=== PATIENT | female | born 1950 | race Caucasian/White ===

== ENCOUNTER → 2024-01-25 09:23 | Outpatient (REF) | payer OTHER, MEDICARE, SELFPAY | LOC: RAD 09:23 | PROVIDERS: ATTENDING PHYSICIAN Thoracic Surgery (Cardiothoracic Vascular Surgery); FAMILY PHYSICIAN Family Medicine | DX: I35.0 Nonrheumatic aortic (valve) stenosis (principal) | CPT/HCPCS: 75572; Q9967 ==

== ENCOUNTER 2024-02-21 05:03 | Inpatient (IN) | payer OTHER, MEDICARE, SELFPAY ==
[2024-01-30 13:11] LABS: % Basophils 0.5 % (0-2); % Eosinophils 3.6 % (0-6); % Immature Granulocytes 0.2 % (0-0.5); % Lymphocytes 23.5 % (20.5-51.1); % Monocytes 8.2 % (1.7-9.3); Absolute Eosinophils 0.2 10^3/uL (0-0.7); Absolute Lymphocytes 1.4 10^3/uL (1.2-3.4); Absolute Monocytes 0.5 10^3/uL (0.1-0.6); Absolute Neutrophils 3.9 10^3/uL (1.4-6.5); Hematocrit 38.3 % (37.0-47.0); Hemoglobin 13.2 g/dL (12.0-16.0); Mean Corp Hgb Conc. 34.5 g/dL (33.0-37.0); Mean Corpuscular Hgb 31.1 pg (27.0-31.0); Mean Corpuscular Volume 90.1 fL (81.0-99.0); Mean Platelet Volume 10.5 fL (7.4-10.4); Nucleated Red Blood Cells % 0 %; Platelet Count 171 10^3/uL (130-400); Red Blood Cell Count 4.25 10^6/uL (4.20-5.40); Red Cell Dist. Width 13.2 % (11.5-14.5); White Blood Cell Count 6.1 10^3/uL (4.8-10.8)
[2024-01-30 13:18] VITALS: BMI 33.1
[2024-01-30 13:23] LABS: INR 1.04; PT 13.4 Sec (11.4-14.6)
[2024-01-30 13:24] LABS: APTT 26.8 Sec (23.4-35.0)
[2024-01-30 13:51] LABS: ALT (SGPT) 15 U/L (0-35); AST (SGOT) 23 U/L (14-36); Albumin 4.5 g/dl (3.5-5.0); Alkaline Phosphatase 107 U/L (38-126); Blood Urea Nitrogen 26 mg/dl (7-17); Calcium 9.9 mg/dl (8.4-10.2); Carbon Dioxide 28 mmol/L (22-30); Chloride 103 mmol/L (98-107); Direct Bilirubin 0.3 mg/dl (0.0-0.4); Estimated Creatinine Clearance 47 ml/min; Glucose 106 mg/dl (70-99); Potassium 4.6 mmol/L (3.5-5.1); Sodium 140 mmol/L (135-145); Total Bilirubin 1.2 mg/dl (0.2-1.3); Total Protein 7.6 g/dl (6.3-8.2); eGFR > 60.00
[2024-01-30 14:09] LABS: Urine Albumin Negative (Neg - Trace); Urine Bilirubin Negative (Negative); Urine Character Clear (Clear); Urine Color Yellow; Urine Glucose Negative (Negative); Urine Ketone Negative (Negative); Urine Leukocyte Trace (Negative); Urine Nitrite Negative (Negative); Urine Occult Blood 2+ (Negative); Urine Urobilinogen Negative (Neg - 1+)
[2024-01-30 14:22] LABS: Urine Bacteria Moderate (Negative); Urine Red Blood Cell 0-2 /HPF (0-2)
--- NOTE | 2024-01-30 14:23 | CM ---
Met with Mrs. Meehan in [facility]'s. She states prior to admission she resides with her spouse and daughter in a one story home with one step to enter. She states prior to admission she was independent with ambulation and adls. She states she does not
have any DME in the home. She states she has a prescription plan and uses [facility]. She states her daughter will be home to assist in her care if needed when she goes home. The discharge plan is to return home with her spouse and daughter and
a home visit by the Cardiothoracic Transitional Care Nurse when medically stable.
We reviewed pre-op and post-op routines. We reviewed the shower instructions. We also reviewed restrictions including sternal precautions and driving restrictions. We discussed a home visit by the Cardiothoracic Transitional Care Nurse. She was
agreeable to a home visit. The plan is AVR and CABG on Monday, February 21, 2024.
[2024-01-31 14:24] LABS: Glycohemoglobin (HgbA1c) 5.3 % (4.0-5.6)
[2024-02-21] VITALS (13 sets, daily range): BP systolic 78–168; BP diastolic 50–71; BMI 31.3
[2024-02-21] MEDS: BACTROBAN 2% OINTMENT 1 APPLIC NASAL ×2 (05:49→23:07)
[2024-02-21] MEDS: PROTONIX 40 MG PO (05:49)
[2024-02-21] MEDS: MAGNESIUM OXIDE 500 MG PO (05:49)
[2024-02-21] MEDS: LOPRESSOR 25 MG PO (05:49)
[2024-02-21 08:16] LABS: ACT+ - POC 85 Seconds (82-134)
[2024-02-21 08:22] LABS: Urine Albumin Trace (Neg - Trace); Urine Bilirubin Negative (Negative); Urine Character Slightly Cloudy (Clear); Urine Color Yellow; Urine Glucose Negative (Negative); Urine Ketone Negative (Negative); Urine Leukocyte 1+ (Negative); Urine Nitrite Positive (Negative); Urine Occult Blood Trace (Negative); Urine Specific Gravity 1.025 (<1.030); Urine Urobilinogen Negative (Neg - 1+)
--- NOTE | 2024-02-21 08:25 | PTCARENOTE ---
Melita Hernandez, gave pt's rings to pt's daughter Mercedes Meehan.
[2024-02-21 08:40] LABS: Urine Bacteria Many (Negative); Urine Red Blood Cell 0-2 /HPF (0-2)
--- NOTE | 2024-02-21 09:43 | CM ---
pt in OR today, cm to follow.
[2024-02-21 10:40] LABS: ACT+ - POC > 1003 Seconds (82-134)
[2024-02-21 10:55] LABS: B.E. - POC 1.1 mmol/L; Glucose - POC 120 mg/dl (65-99); HCO3 - POC 25 mmol/L (21-29); Hematocrit - POC 35 % PCV (37-47); Hemodilution- POC No; Hemoglobin Calculated - POC 11.9; Ionized Calcium - POC 1.21 mmol/L (1.12-1.27); O2 Saturation %Calculated-POC 99.7 5 (92-96); PCO2 - POC 38 mmHg (35-45); PO2 - POC 199 mmHg (80-100); POC Comment BASELINE; Potassium - POC 4.1 mmol/L (3.6-5.0); Sodium - POC 141 mmol/L (135-145); pH - POC 7.43 (7.35-7.45)
[2024-02-21 11:09] LABS: ACT+ - POC 770 Seconds (82-134)
[2024-02-21 11:28] LABS: B.E. - POC 2.4 mmol/L; Glucose - POC 161 mg/dl (65-99); HCO3 - POC 28 mmol/L (21-29); Hematocrit - POC 23 % PCV (37-47); Hemodilution- POC Yes; Hemoglobin Calculated - POC 7.9; Ionized Calcium - POC 0.99 mmol/L (1.12-1.27); O2 Saturation %Calculated-POC 99.9 5 (92-96); PCO2 - POC 46 mmHg (35-45); PO2 - POC 347 mmHg (80-100); POC Comment CPB; Potassium - POC 4.7 mmol/L (3.6-5.0); Sodium - POC 138 mmol/L (135-145); pH - POC 7.39 (7.35-7.45)
[2024-02-21 11:40] LABS: ACT+ - POC 650 Seconds (82-134)
[2024-02-21 11:56] LABS: B.E. - POC 2.1 mmol/L; Glucose - POC 132 mg/dl (65-99); HCO3 - POC 26 mmol/L (21-29); Hematocrit - POC 25 % PCV (37-47); Hemodilution- POC Yes; Hemoglobin Calculated - POC 8.5; Ionized Calcium - POC 1.03 mmol/L (1.12-1.27); O2 Saturation %Calculated-POC 99.9 5 (92-96); PCO2 - POC 38 mmHg (35-45); PO2 - POC 245 mmHg (80-100); POC Comment CPB; Potassium - POC 4.3 mmol/L (3.6-5.0); Sodium - POC 138 mmol/L (135-145); pH - POC 7.45 (7.35-7.45)
[2024-02-21 12:05] LABS: ACT+ - POC 550 Seconds (82-134)
[2024-02-21 12:29] LABS: B.E. - POC 0.1 mmol/L; Glucose - POC 102 mg/dl (65-99); HCO3 - POC 25 mmol/L (21-29); Hematocrit - POC 25 % PCV (37-47); Hemodilution- POC Yes; Hemoglobin Calculated - POC 8.6; Ionized Calcium - POC 1.07 mmol/L (1.12-1.27); O2 Saturation %Calculated-POC 99.9 5 (92-96); PCO2 - POC 38 mmHg (35-45); PO2 - POC 265 mmHg (80-100); POC Comment CPB; Potassium - POC 4.2 mmol/L (3.6-5.0); Sodium - POC 141 mmol/L (135-145); pH - POC 7.42 (7.35-7.45)
[2024-02-21 12:37] LABS: ACT+ - POC 508 Seconds (82-134)
[2024-02-21 12:56] LABS: B.E. - POC 0.9 mmol/L; Glucose - POC 105 mg/dl (65-99); HCO3 - POC 24 mmol/L (21-29); Hematocrit - POC 26 % PCV (37-47); Hemodilution- POC Yes; Hemoglobin Calculated - POC 8.9; Ionized Calcium - POC 1.05 mmol/L (1.12-1.27); O2 Saturation %Calculated-POC 99.9 5 (92-96); PCO2 - POC 33 mmHg (35-45); PO2 - POC 290 mmHg (80-100); POC Comment CPB; Potassium - POC 4.4 mmol/L (3.6-5.0); Sodium - POC 142 mmol/L (135-145); pH - POC 7.48 (7.35-7.45)
[2024-02-21 13:09] LABS: ACT+ - POC 639 Seconds (82-134)
[2024-02-21 13:38] LABS: ACT+ - POC 579 Seconds (82-134)
[2024-02-21 13:51] LABS: B.E. - POC -0.8 mmol/L; Glucose - POC 170 mg/dl (65-99); HCO3 - POC 23 mmol/L (21-29); Hematocrit - POC 22 % PCV (37-47); Hemodilution- POC Yes; Hemoglobin Calculated - POC 7.5; Ionized Calcium - POC 0.98 mmol/L (1.12-1.27); O2 Saturation %Calculated-POC 99.9 5 (92-96); PCO2 - POC 32 mmHg (35-45); PO2 - POC 284 mmHg (80-100); POC Comment WARM; Potassium - POC 4.2 mmol/L (3.6-5.0); Sodium - POC 142 mmol/L (135-145); pH - POC 7.46 (7.35-7.45)
[2024-02-21 13:59] LABS: ACT+ - POC 547 Seconds (82-134)
[2024-02-21 14:21] LABS: ACT+ - POC 454 Seconds (82-134)
[2024-02-21 14:35] LABS: B.E. - POC -1.9 mmol/L; Glucose - POC 160 mg/dl (65-99); HCO3 - POC 22 mmol/L (21-29); Hematocrit - POC 26 % PCV (37-47); Hemodilution- POC Yes; Hemoglobin Calculated - POC 8.7; Ionized Calcium - POC 1.03 mmol/L (1.12-1.27); O2 Saturation %Calculated-POC 99.8 5 (92-96); PCO2 - POC 35 mmHg (35-45); PO2 - POC 238 mmHg (80-100); POC Comment CPB; Sodium - POC 143 mmol/L (135-145); pH - POC 7.41 (7.35-7.45)
--- NOTE | 2024-02-21 15:23 | W.CVOR.SURPR ---
CVOR Surgeon Immed Pre Op
-
I have examined this patient prior to performance of the scheduled procedure.
The patient's condition is unchanged from the time of the dictated/written History and
Physical and the patient is able to undergo the scheduled procedure.
--- NOTE | 2024-02-21 15:24 | W.IMMPOSTOP ---
Addendum entered and electronically signed by Lennox Odonnell MD 02/21/24 17:06:
[id number]
Original Note:
Surgical Immed Post Op Note
-
CARDIAC SURGERY OPERATIVE NOTE:
Preoperative Dx:
[id number] aortic stenosis (P/M: 52/36)
MVCAD s/p prior stenting of OM
LBBB
Postoperative Dx:
Same
Procedures:
1) Median sternotomy
2) Takedown of JENNIFER (narrow pedicle)
3) Endoscopic harvest/prep of RLE GSV
4) CABG x 3 (Distal OM, proximal OM branch, LAD)
5) AVR (#19 Inspiris)
Surgeon:
Lennox Odonnell M.D.
Assistants:
Eunice Pablo P.A.-C.; endoscopic harvest/prep of RLE GSV; residential real estate assistant throughout; clayfe-ev-lbcy closure
Melita Dumont P.A.-C.; closure of RLE GSV incisions; clsdcy-qo-cwrj closure
Anesthesia:
Fernando Ambriz M.D. and Vadim PatelN.A.
Perfusion:
Kath Lock C.C.P.; XC: 178min, CPB: 220min
Findings:
1) JENNIFER was healthy appearing conduit w/ brisk blood flow; slightly small ELD 2.25mm, thin-walled
2) GSV was healthy appearing conduit w/ slightly thin quintana
3) LAD was visible on the epicardial surface from midpoint to apex; ELD 2.75mm, thin-walled. Good flow visually and on completion transit-time U/S flow probe assessment
4) OM was visible on the epicardial surface, stented segment visible; initial coronary arteriotomy ~ 0.5cm distal to stented segment. Unfortunately, coronary dissected and tore at this location during arteriotomy. This location was damaged beyond
the ability to directly repair & maintain anastomosis at this location. I opened the coronary ~1cm distal to this site. It also was very thin-walled and friable at this location, but there was no evidence of dissection/wall injury. ELD 2.25mm.
End-to-side anastomosis performed w/o issue. I then used a vein patch to repair the initial arteriotomy site. I subsequently performed a sequential dqsx-ys-klhb anastomosis to a more proximal branch of the OM; ELD 1.5mm. Good flow on hand
injection and completion transit-time U/S flow probe assessment.
5) Aorta was small w/ ELD 2.1cm; STJ was small w/ 2.1-2.2cm; Annulus was small @ 21.1 mm x 21.8 mm; LVOT was slightly smaller than annulus. Aortic wall was thin and friable
6) #19 Inspiris valve placed w/ 12 interrupted, pledgetted valve sutures and CorKnots. Aorta suffered near complete circumferential tear while valve was lowered into position. Repaired w/ 2-layer circumferential closure w/ 4-0 prolene. Mean
gradient across the valve 10mmHg
7) KORINA w/ normal biventricular function
Complications:
See findings
Transfusions:
1U PRBC, 1pk PLTs
Implants:
[employer]; Inspiris RESILIA AVR; #19; SN: [id number]
Epicardial V-wires x 2
Sternal wires x 8
Condition:
81 sinus w/ LBBB. 108/64. 50/30. CVP 20. CO/CI: 3.0/1.7 (starting 3.2/1.8)
GTTS: insulin 0.5, precedex 0.5, levophed 6, dobutamine 5
Stable/guarded to CVICU
--- NOTE | 2024-02-21 15:38 | CON.INTV ---
Consultation
Consultation Request
Date/Time Consultation Requested: 02/21/24
Date/Time Consultation Performed: 02/21/24
Performing Provider: Krista
Reason for Consultation: Critical Care
Medical History
-
History of Present Illness:
Patient is a 73-year-old female with previous history of CAD status post stent, heart failure with preserved ejection fraction, moderate to severe , hypertension presenting for elective cardiac procedure. She has known history of CAD status post
PCI and stenting to her left circumflex x 3. She had increasing chest pressure and jaw pain, with associated dyspnea with exertion. Recent cardiac catheterization demonstrated 70% ostial left circumflex prior to the stented segment of major obtuse
and 70% LAD disease she also has 70% mid RCA disease noted. Recent TTE demonstrating EF 50-55%. Underwent AVR and CABG 02/21/2024, postoperatively transferred to CVICU on mechanical ventilation for further management.
Past Medical History
Past Medical History: Other (see list below)
Social History
Tobacco: Non-smoker
Alcohol: None
Drug: None
Family History
Family History: Reviewed & Not Pertinent
Allergies / Home Medications
Allergies
Allergy/AdvReac Type Severity Reaction Status Date / Time
No Known Allergies Allergy Verified 01/25/24 14:07
Home Medications
�Medication �Instructions �Recorded �Confirmed �Last Taken �Type
aspirin 81 mg tablet 81 mg PO DAILY 01/25/24 02/21/24 02/20/24 08:00 History
atorvastatin 40 mg tablet 40 mg PO DAILY 01/25/24 02/21/24 02/20/24 History
furosemide 20 mg tablet 20 mg PO DAILY 01/25/24 02/21/24 02/20/24 History
isosorbide mononitrate 60 mg 60 mg PO DAILY 01/25/24 02/21/24 02/18/24 08:00 History
tablet,extended release 24 hr
metoprolol tartrate 50 mg tablet 50 mg PO DAILY 01/25/24 02/21/24 02/20/24 History
pantoprazole 40 mg tablet,delayed 40 mg PO BID 01/25/24 02/21/24 02/20/24 History
release
Review of Systems
-
History Source: Patient
All other systems: Negative unless noted
Vitals / Labs / Diagnostic Testing
Vital Signs
Temp Pulse Resp BP Pulse Ox
97.6 F 81 20 162/72 96
02/21/24 05:07 02/21/24 05:49 02/21/24 05:07 02/21/24 05:49 02/21/24 05:07
Diagnostic Testing:
Physical Exam
-
HEENT: Normocephalic, Anicteric and Moist Mucous Membranes
Cardiovascular: S1/S2 and Regular Rhythm
Respiratory: Clear, Non-Labored Respirations and Other (ETT/chest tube placement)
GI: Soft, Non Distended and Non Tender
Neurology: Other (sedated/intubated)
Skin: Warm, Dry and Good Color
General: Other (critically ill, intubated)
Assessment
-
Patient is a 73-year-old female with previous history of CAD status post stent, heart failure with preserved ejection fraction, moderate to severe , hypertension presenting for elective cardiac procedure. Underwent AVR and CABG 02/21/2024,
postoperatively transferred to CVICU on mechanical ventilation for further management.
MvCAD s/p CABG x 3, AVR 02/21/24
Perioperative mechanical ventilation
Postoperative anemia, thrombocytopenia
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
HTN
CAD s/p PCI to OM 11/19/20
Chronic HFpEF
Moderate-severe
Obesity
HLD
Arthritis
PVC
b/l TKR
x3
Cath PCI to OM 11/19/20
Cath 12/2023
Plan
S/p CAB/AVR POD #0
Titrate off pressors per protocol--on dobutamine/Levophed/vaso added
Surgery at bedside
ECHO reviewed with low function, EF 45-50%
PA catheter readings reviewed
Management of chest tubes per primary service
Intubated/sedated, initiate SAT when able
Pain control
RASS goal of 0 to -1
Intubated for procedure, SBT trial when patient able to spontaneously breath
Current vent settings: SIMV 400/14/50/5
ABG(s) reviewed/adequate ventilation/oxygenation
CXR pending
No prior history of pulmonary disease, possible sleep apnea
Prior PFTs reviewed--suggests restriction/moderately reduced, likely related to BMI
Can add nebulizers if needed
Aspiration precautions
Encouraged incentive spirometry, OOB/ambulation/early mobility
Advance diet as tolerated following extubation
GI prophylaxis if indicated for mechanical ventilation >48 hours
Monitor critical I/O's
Goyal/chest tube output
Hb/platelets postoperatively stable, Hb 8, repeat pending
Trend CBC for now
Can transfuse if indicated for Hb <7, plt <50 in surgical patients
DVT prophylaxis including SCDs
Insulin protocol initiated and ongoing
Transition to SQ/off as indicated per team
We will follow
Diagnostic Data
Chest X-Ray:
CT Scan: 01/25/24- Chest: No pulmonary nodules, areas of airspace disease, pleural effusions, pericardial effusions or enlarged lymph nodes in the thorax. 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 Origins of the
great vessels from the aortic arch are patent. Visualized upper abdomen demonstrates right renal cysts, some with complex calcifications and measuring up to 2.5 cm. Chronic appearing severe T10 compression deformity.
Echo: 02/21/24- Overall LVEF is approximately 45-50% with mild global hypokinesis. Moderate concentric left ventricular hypertrophy. Stage I Diastolic dysfunction. Patent foramen ovale present with a dlso-xr-dublp shunt. Moderately dilated right
atrium. Trace tricuspid regurgitation. Trace pulmonic insufficiency. Severe aortic stenosis. Mild aortic insufficiency. KAYLI calculates to 0.7 cm2 by continuity equation. Trace mitral regurgitation. Mild posterior MV annular calcification. Mild
diffuse calcified atheroma seen in the aortic arch. Mild sessile atheroma seen in the descending aorta.
PFT's: Spirometry 01/30/24- FVC was 1.82L or 78%. FEV1 was 1.33L or 66%. Ratio 74
Impression: Suspected mild restrictive lung disease.
Reports and relevant images were personally reviewed.
-----
Critical care time 55 mins -- this includes review of history, physical exam, medications, hemodynamic/ventilator parameters, laboratory data, imaging and discussion with house staff, pharmacy, respiratory therapy, grader tender, and nursing.
[2024-02-21 15:59] LABS: Glucose - Point of Care 84 mg/dl (70-99)
--- NOTE | 2024-02-21 16:00 | PTCARENOTE ---
SDA for sternotomy,of davina, harvest of rle gsv, CABG x 3, AVR #19 inspiris, aorta tear after valve lowered into position with repair of circumferential tear. It was also reported at bedside that patient had a v fibb arrest after chest closure
rrequiring 2 shocks: 1 umnnit prbc/1 partially infuse plt was also reported at bedside time of arrival at 350pm: upon arrival to cvicu, patient developed hypotension unresponsive to fluid, prbc, volume, pressors: ct emergency at bedside: patient
developed a generalized urticarial rash shortly after arrival from shoulders to knees: IM benadryl, IM epi, decadron IV and pepcid 40mg for distributive shock anaphyalactic reaction. Stabilized and rash faded after above. Precedex resumed at 0.2.
ETT pulled back 2cm. 1 unit prbc in cvicu. See MD notes. Precedex off per Dr. Odonnell.
[2024-02-21] MEDS: CALCIUM CHLORIDE 10% SYRINGE 500 MG IV (16:03)
[2024-02-21 16:08] LABS: B.E. -1.7 mmol/L; HCO3 23.7 mmol/L (21-28); Ionized Calcium 1.11 mMOL/L (1.15-1.33); PCO2 42 mmHg (32-35); PO2 106 mmHg (83-108); Potassium 3.4 mMOL/L (3.5-5.1); Sodium 142 mMOL/L (136-145); pH 7.36 (7.35-7.45)
[2024-02-21 16:10] LABS: Hematocrit 24.2 % (37.0-47.0); Hemoglobin 8.4 g/dL (12.0-16.0); Platelet Count 96 10^3/uL (130-400)
[2024-02-21 16:17] LABS: INR 1.85; PT 21.5 Sec (11.4-14.6)
[2024-02-21 16:18] LABS: APTT 41.9 Sec (23.4-35.0)
[2024-02-21 16:30] LABS: Blood Urea Nitrogen 21 mg/dl (7-17); Estimated Creatinine Clearance 62 ml/min; Glucose 75 mg/dl (70-99); Magnesium 3.6 mg/dl (1.6-2.3)
[2024-02-21] MEDS: ADRENALIN 0.3 MG IM (16:46)
[2024-02-21] MEDS: BENADRYL 25 MG IV (16:47)
[2024-02-21] MEDS: DECADRON 6 MG IV (16:48)
[2024-02-21] MEDS: LIPITOR PO (16:49)
[2024-02-21] MEDS: NEURONTIN PO ×3 (16:49→22:08)
[2024-02-21] MEDS: ANCEF 10 IV ×2 (16:49)
[2024-02-21] MEDS: TYLENOL PO ×2 (16:50→22:08)
[2024-02-21] MEDS: NSS 500 IV (16:50)
[2024-02-21] MEDS: PACERONE PO (16:50)
[2024-02-21] MEDS: PROTONIX PO ×2 (16:50→22:07)
[2024-02-21] MEDS: VERSED 0.5 MG IV (17:03)
[2024-02-21 17:07] LABS: Glucose - Point of Care 86 mg/dl (70-99)
[2024-02-21 17:18] LABS: HCO3 21.2 mmol/L (21-28); Ionized Calcium 1.18 mMOL/L (1.15-1.33); PCO2 43 mmHg (32-35); PO2 214 mmHg (83-108); Potassium 3.4 mMOL/L (3.5-5.1)
[2024-02-21] MEDS: PEPCID 40 MG IV (17:18)
--- NOTE | 2024-02-21 17:22 | W.PN.CD ---
Addendum entered and electronically signed by Jasbir Rivas DO 02/21/24 18:07:
Attestation: I have seen and examined the patient. I can confirm Ms. Rivas's findings and I agree with her assessment and plan as documented.
73-year-old female admitted for elective AVR CABG.
The patient underwent surgery which was a success. Dr. Odonnell remarked that her tissues are histologically abnormal and were very friable during the operation.
The patient received at least 1 unit of packed red blood cells and 1 unit of platelets between the OR and recovery.
In the CVICU, the patient became hypotensive with evidence of distributive shock and a diffuse, urticarial rash consistent with acute anaphylaxis.
Platelet transfusion was stopped.
The patient was supported with vasopressor agents. She was given IV steroids and diphenhydramine.
At the time of examination, she is intubated and will remain so overnight.
She is requiring norepinephrine 2 mcg/kg/min.
The urticarial rash remains from shoulder to knee.
We anticipate routine postoperative management, augmented by treatment of anaphylaxis.
We would consider the causes of her type I hypersensitivity reaction, including delayed response to antibiotics, delayed response to protamine, transfusion reaction (most likely).
Of note, the CVICU staff reports that another patient had hypersensitivity reaction earlier in the day.
This raises the possibility of a common culprit within the cardiothoracic surgery line of care. That patient also received transfusion.
I have asked that the blood products be saved and cross-referenced for possible future donor exclusion.
In addition to her current medications, we recommend starting famotidine 40 mg IV.
Thank you for this interesting consult. We will continue to follow along.
Original Note:
Today's Communication / Plan
-
Follow telemetry
Impression / Plan
-
Background: 73F presents for CABG and aortic valve replacement
Development Planner: Dr. Land
CAD and moderate to severe aortic stenosis s/p CABG x 3 and aortic valve replacement (#19 Inspiris) by Dr. Odonnell 02/21/2024
-During closure she developed VF, shock and magnesium administered
-Pre and post KORINA unchanged
-EKG with left bundle branch block, unchanged
-Postoperatively had anaphylactic shock as below
-Remains on Levophed and dobutamine
-Follow telemetry
Anaphylactic shock
-Status post Decadron, epinephrine, and Benadryl, consider intravenous Pepcid
-Offending agent remains unknown (platelets, PRBC, antibiotic, protamine)
PFO with ychu-aw-uysst shunt
Atheroma in aortic arch and descending aorta by TTE
Hypertension, currently on vasopressor
Subjective:
Patient remains intubated and sedated on mechanical ventilation. Operative findings reviewed with the surgeon at the bedside.
Physical Exam
Vital Signs/Labs
Vital Signs
Temp Pulse Resp BP Pulse Ox
96.4 F L 78 15 162/72 100
02/21/24 17:00 02/21/24 17:10 02/21/24 17:10 02/21/24 05:49 02/21/24 17:10
02/20/24 02/21/24 02/22/24
06:59 06:59 06:59
Actual Weight 77.5 kg
02/21/24 15:56
PT 21.5 Sec (11.4-14.6) H 02/21/24 15:56
INR 1.85 02/21/24 15:56
APTT 41.9 Sec (23.4-35.0) H 02/21/24 15:56
Magnesium 3.6 mg/dl (1.6-2.3) H 02/21/24 15:56
Physical Exam
Constitutional: No acute distress and Comfortable
EENT: Anicteric and Moist mucous membranes
Cardiovascular: Rhythm & rate is regular, S1S2 is normal and Murmur/rub/gallop absent
Respiratory: Lungs clear to auscul. and Other (ETT to mechanical ventilation)
GI: Soft, Distention absent, Flat, Non tender and Normal bowel sounds
Neuro/Psych: Other (Sedated)
Other: Skin (Diffuse skin rash)
Data Reviewed
-
Date of Service: February 21, 2024
EKG: Report Reviewed by me
Labs: Labs Reviewed by me
Old Records: Reviewed
[2024-02-21] MEDS: KCL 50 IV ×2 (17:30→18:34)
--- NOTE | 2024-02-21 18:00 | PTCARENOTE ---
Generalized urticaria fading: levo now at 2mcg/min. See flow record for remaining assessments
[2024-02-21 18:07] LABS: Glucose - Point of Care 122 mg/dl (70-99)
[2024-02-21 18:26] LABS: HCO3 19.6 mmol/L (21-28); O2 Saturation % 99.7 % (94-98); PCO2 38 mmHg (32-35); PO2 163 mmHg (83-108); pH 7.32 (7.35-7.45)
[2024-02-21] MEDS: NSS (PRESERVATIVE FREE) 16 ML IV (18:34)
[2024-02-21 19:13] LABS: Glucose - Point of Care 148 mg/dl (70-99)
[2024-02-21] MEDS: OFIRMEV 100 IV (19:44)
--- NOTE | 2024-02-21 20:00 | PTCARENOTE ---
Assumed care of patient at 1900. Patient found intubated in bed at time of assessment. Patient is alert arouses to verbal, follows commands appropriately, moves all extremities. Lung sounds are diminished in the bases, patient an 8.0 ETT sitting 24
on the lip with SIMV settings see worklist for more information. Patient has CTx4: 2xmeds to one atrium and R/L pleural to one atrium draining red sanguineous. Heart sounds have a regular rate and rhythm, patient is SR with BBB on the monitor,
patient has normal palpable radial pulses and doraslis pedis pulses present with doppler. Patient has trace BLE edmea. Hypoactive BS throughout soft nontender abdomen and kaur catheter in place draining clear yellow urine. There is a R IJ cordis
with swan @47, R radial Raymond, and R Hand 18G. Patient has sternal incision with aquacell dressing that has small old drainage present, R groin puncture MACIEJ approx with surg adhesive VOLUNTEER SERVICES COORDINATOR, and RLE incision approx with surg adhesive VOLUNTEER SERVICES COORDINATOR, AFTAB wrapped,
some ecchymosis noted around site. Patient has the following gtss: Insulin column 2, Vasopressin @0.003, Levo@4, Dobut@1. Patient will possibly remain intubated overnight awaiting CT PA and surgeon input.
[2024-02-21] MEDS: CALCIUM CHLORIDE 10% SYRINGE 60 MG IV (20:07)
--- NOTE | 2024-02-21 20:10 | PTCARENOTE ---
Aram ordererd and administered for patient reported pain. Patient reports discomfort 2/2 ETT. Orders for 1000 mg Ca Chloride promptly administered. Continuing to monitor.
[2024-02-21 20:17] LABS: Hematocrit 29.1 % (37.0-47.0); Hemoglobin 10.5 g/dL (12.0-16.0); Platelet Count 133 10^3/uL (130-400)
[2024-02-21 20:26] LABS: INR 1.52; PT 18.4 Sec (11.4-14.6)
[2024-02-21 20:27] LABS: APTT 25.5 Sec (23.4-35.0)
[2024-02-21 20:35] LABS: B.E. -7.7 mmol/L; HCO3 17.4 mmol/L (21-28); Ionized Calcium 1.09 mMOL/L (1.15-1.33); PCO2 33 mmHg (32-35); PO2 192 mmHg (83-108); Potassium 4.3 mMOL/L (3.5-5.1); pH 7.33 (7.35-7.45)
[2024-02-21 20:42] LABS: Glucose - Point of Care 140 mg/dl (70-99)
[2024-02-21] MEDS: SODIUM BICARBONATE 100 MEQ IV (20:47)
--- NOTE | 2024-02-21 21:00 | PTCARENOTE ---
Labs obtained. CT PA notified of results. Received orders for administration of 2 amps bicarb. FiO2 adjusted to 40%. RT and PA at bedside to assess deflate ETT cuff assess air leak. RT reports no air leak audible on auscultation. No further orders
at this time. Patient reports no pain at this time.
--- NOTE | 2024-02-21 21:00 | RESPNOTE ---
Pt Failed ETT cuff leak test. Test performed over approx. 5 Min with cuff fully deflated. Pt had no upper airway leakage and no lose of ventilator Tidal volume. RN, Family and WIREWORKER SUPERVISOR present for test.
[2024-02-21] MEDS: DECADRON 4 MG IV (22:00)
[2024-02-21] MEDS: ANCEF 5 IV (22:00)
[2024-02-21 22:05] LABS: B.E. -0.4 mmol/L; HCO3 24.1 mmol/L (21-28); O2 Saturation % 99.5 % (94-98); PCO2 38 mmHg (32-35); PO2 106 mmHg (83-108); Potassium 4.5 mMOL/L (3.5-5.1); pH 7.41 (7.35-7.45)
[2024-02-21] MEDS: SENOKOT-S PO (22:07)
[2024-02-21 22:12] LABS: Glucose - Point of Care 105 mg/dl (70-99)
--- NOTE | 2024-02-21 22:16 | PTCARENOTE ---
Decadron administered. ABG drawn and resulted. Awaiting CT PA and anesthesiologist to attempt extubation.
--- NOTE | 2024-02-21 22:29 | PTCARENOTE ---
Patient extubated at [address]. [address] and CT PA at bedside to assist. Place on 6L via NC with saO2 at 99%. 750 on IS.
[2024-02-21] MEDS: TORADOL 15 MG IV (22:57)
[2024-02-21] MEDS: LOW STRENGTH ASPIRIN 81 MG PO (23:06)
[2024-02-22] VITALS (33 sets, daily range): BP systolic 87–153; BP diastolic 43–89; BMI 32.7
--- NOTE | 2024-02-22 | PTCARENOTE ---
Patient reassessed. Remains extremely labile Levo titrated to maintain MAP>65. O2 weaned to 4L via NC. Decreased UOP and low CVP noted reported to CT PA.
[2024-02-22 00:07] LABS: Glucose - Point of Care 114 mg/dl (70-99)
[2024-02-22] MEDS: ALBUMIN 5% 250 IV ×3 (00:35→23:44)
--- NOTE | 2024-02-22 01:30 | PTCARENOTE ---
Administered 250cc albumin per CT PA. CI>2 following infusion.
[2024-02-22 01:31] LABS: Mixed Venous O2 Saturation 69.1 %
[2024-02-22 02:35] LABS: Glucose - Point of Care 102 mg/dl (70-99)
[2024-02-22 03:41] LABS: B.E. -0.7 mmol/L; HCO3 24.2 mmol/L (21-28); Ionized Calcium 1.24 mMOL/L (1.15-1.33); O2 Saturation % 99.4 % (94-98); PCO2 40 mmHg (32-35); PO2 85 mmHg (83-108); Potassium 4.5 mMOL/L (3.5-5.1); pH 7.39 (7.35-7.45)
[2024-02-22 03:45] LABS: Hematocrit 24.3 % (37.0-47.0); Hemoglobin 8.7 g/dL (12.0-16.0); Mean Corp Hgb Conc. 35.8 g/dL (33.0-37.0); Mean Corpuscular Hgb 31.1 pg (27.0-31.0); Mean Corpuscular Volume 86.8 fL (81.0-99.0); Red Cell Dist. Width 14.7 % (11.5-14.5)
[2024-02-22] MEDS: OFIRMEV 100 IV (03:47)
[2024-02-22 03:55] LABS: Lactic Acid 1.5 mmol/L (0.7-2.0)
[2024-02-22 03:57] LABS: INR 1.45; PT 17.7 Sec (11.4-14.6)
[2024-02-22 03:58] LABS: APTT 28.1 Sec (23.4-35.0)
[2024-02-22 04:02] LABS: Blood Urea Nitrogen 25 mg/dl (7-17); Calcium 8.9 mg/dl (8.4-10.2); Carbon Dioxide 23 mmol/L (22-30); Chloride 114 mmol/L (98-107); Estimated Creatinine Clearance 49 ml/min; Glucose 112 mg/dl (70-99); Magnesium 2.8 mg/dl (1.6-2.3); Potassium 4.5 mmol/L (3.5-5.1); Sodium 144 mmol/L (135-145); eGFR 59.86
[2024-02-22 04:30] LABS: Glucose - Point of Care 124 mg/dl (70-99)
--- NOTE | 2024-02-22 05:28 | PTCARENOTE ---
Patient reassessed. AM EKG obtained. AM hygiene care provided. AM labs obtained. Noticeable increase in med CT output noted around [address] PA. Patient with increased activity around this time. Additional labs ordered and CXR performed.
CT output normalized no anomalous labs will continue to monitor now. Patient remains SR on the monitor with occasional PVCs noted. Vasopressin off per CT PA. Levo@3.
--- NOTE | 2024-02-22 05:35 | W.PN.CT ---
Today's Communication / Plan
-
-pod #1
-no significant issues overnight. Had brief 6 beat SVT, some PACs (asymptomatic)
-extubated uneventfully at 10:[address] Tolbert
-CI 2.09, CO 3.75, SVR 1471. Drips: Dobut 1, Vasopressin off at 5 am, Levo 3, Insulin
-CT output: 2 meds 240/280, 2 pleur 160/395 in 12/24 hrs- monitor
-has pre-existing LBBB
-will hold BB while on Levo, continue po Amio
-held Mg (2.8)
-Cr stable 1.0
-current meds (ASA, Plavix, Lipitor, Amio, Protonix, Feosol)
-encourage IS
Assessment / Plan
-
- Mod-severe / mv-CAD - s/p bioprosthetic AVR (#19 Inspiris); CABG x3 (DEL REAL-Lad, SVG-disal OM- prox OM branch) by Dr Odonnell on 02/21/24, pod #1
- Intraop KORINA w/ normal biventricular function
- Friable tissues/OM dissection
- CAD - s/p stenting of OM 20
- Pre-existing LBBB
- HTN/HLD
- Chronic diastolic CHF
- Hx fatigue/chest pain
- Class 1 obesity (BMI 31)
- OA/ b/l TKR
- Hx PVCs
- C-sections
- Acute postop blood loss anemia - s/p 2 pRBCs
- Acute postop thrombocytopenia- platelet transfusion aborted d/t possible reaction
- Acute type I hypersensitivity reaction/ hives with hypotensive shock, possible transfusion reaction to platelets- improved with Epi, Decadron, Benadryl, Pepcid
- Acute postop hypovolemia with subsequent hypervolemia
- Acute postop atelectasis
Discussed patient care with: Nursing and Care Team
Subjective
Procedure
- s/p bioprosthetic AVR (#19 Inspiris); CABG x3 (DEL REAL-Lad, SVG-disal OM- prox OM branch) by Dr Odonnell on 02/21/24
-
Date of Service: February 22, 2024
Objective Data
-
PT 18.4 Sec (11.4-14.6) H 02/21/24 20:04
INR 1.52 02/21/24 20:04
APTT 25.5 Sec (23.4-35.0) 02/21/24 20:04
Vital Signs
Vital Signs
Temp Pulse Resp BP Pulse Ox
99.6 F 68 18 111/63 99
02/22/24 02:00 02/22/24 02:05 02/22/24 02:05 02/22/24 02:00 02/22/24 02:05
CT Intake/Output/Weight
02/21/24 02/21/24 02/22/24
06:59 18:59 06:59
Intake Total 445.9 / 972.0 526.1 / 972.0
Output Total 635 / 1365 730 / 1365
Balance -189.1 / -393.0 -203.9 / -393.0
SaO2: 99
Physical Exam
-
General: Awake and AOx3
Cardiovascular: Regular rate & rhythm, No Murmurs and No Rub
Respiratory: Decreased Breath Sounds (no wheeze)
Sternum: Stable
Incision: Clean, Dry and Dressing Intact
Extremities: No Edema (DPs and PTs are by Doppler b/l)
Data Reviewed
-
Lab Results: Results Reviewed
Medications: Active Meds Reviewed
Chest X-Ray: Report Reviewed and Image Reviewed
ECG: Report Reviewed and Image Reviewed
[2024-02-22] MEDS: ANCEF 5 IV ×2 (05:49→12:46)
[2024-02-22 06:22] LABS: Glucose - Point of Care 110 mg/dl (70-99)
[2024-02-22 07:14] LABS: Mean Platelet Volume 10.4 fL (7.4-10.4); Platelet Count 87 10^3/uL (130-400)
[2024-02-22] MEDS: TYLENOL 1000 MG PO ×2 (07:24→20:50)
--- NOTE | 2024-02-22 07:38 | W.PN.ANS.POP ---
Anesthesia Post Operative
- Anesthesia Post Op Note
Vital Signs Stable-See Nursing Note: Yes
Airway Patent: Yes
Adequate Pain Control: Yes
Change in Mental Status: No
Current Postoperative Nausea & Vomiting: No
Anesthesia Complications: No
General Anesthetic Recall: No
Unplanned Admission: No
Post Op Hydration Adequate: Yes
--- NOTE | 2024-02-22 07:53 | W.PN.CD ---
Today's Communication / Plan
-
Wean levo and dobutamine as tolerated
Impression / Plan
-
Background: 73F presents for CABG and aortic valve replacement
Transmission Technician: Dr. Burdick
CAD and moderate to severe aortic stenosis s/p CABG x 3 and aortic valve replacement (#19 Inspiris) by Dr. Odonnell 02/21/2024
-During closure she developed VF, shock and magnesium administered
-Pre and post KORINA unchanged
-EKG with left bundle branch block, unchanged
-Postoperatively had shock felt to be anaphylactic
-Remains on Levophed (3) and dobutamine (1)
-ECG shows SR LBBB (had LBBB preop)
Presumptive anaphylactic shock
-Status post Decadron, epinephrine, and Benadryl, consider intravenous Pepcid
-Offending agent remains unknown (platelets, PRBC, antibiotic, protamine)
- Wean drips as tolerated
PFO
Atheroma in aortic arch and descending aorta by TTE
Hypertension, currently on vasopressor
Subjective:
Feels surpisingly well for POD #1
Physical Exam
Vital Signs/Labs
Vital Signs
Temp Pulse Resp BP Pulse Ox
98.9 F 78 19 126/55 100
02/22/24 06:00 02/22/24 07:10 02/22/24 07:10 02/22/24 06:00 02/22/24 07:10
02/21/24 02/22/24 02/23/24
06:59 06:59 06:59
Actual Weight 170 lb 13.732 oz 178 lb 9.191 oz
02/22/24 03:27
02/22/24 03:27
PT 17.7 Sec (11.4-14.6) H 02/22/24 03:27
INR 1.45 02/22/24 03:27
APTT 28.1 Sec (23.4-35.0) 02/22/24 03:27
Magnesium 2.8 mg/dl (1.6-2.3) H 02/22/24 03:27
Physical Exam
Constitutional: No acute distress
EENT: Anicteric
Cardiovascular: Rhythm & rate is regular, S1S2 is normal and Murmur/rub/gallop absent
Respiratory: Respiratory effort normal, Wheeze Absent, Crackles Absent and Rhonchi Present
GI: Non tender
Neuro/Psych: AO x 3 and Motor deficits absent
Data Reviewed
-
Date of Service: February 22, 2024
[2024-02-22 08:06] LABS: Glucose - Point of Care 83 mg/dl (70-99)
--- NOTE | 2024-02-22 08:13 | PTCARENOTE ---
assumed care of pt from previous shift RN, pt is AAOX4, sinus rhythm on tele w BBB, + peripheral pulses, no edema noted. Epicardial V wire insulated. Right IJ cordis w swan, PAP 27/11, CVP 7, CO 4.33, CI 2.42, right radial sumanth leveled and zeroed,
BP 124/53. Lungs diminished, pox 99% on 2L NC, coughing and deep breathing encouraged. +BS, tolerating PO intake, kaur draining jono. CT x4 w minimal amount of red drainage. Post op incisions remain intact. Pt reports adequate pain control.
DRIPS:
Levophed 2mcg
Insulin titrated per glycemic protocol
[2024-02-22] MEDS: LOW STRENGTH ASPIRIN 81 MG PO (09:01)
[2024-02-22] MEDS: VITAMIN C 500 MG PO (09:01)
[2024-02-22] MEDS: NEURONTIN 100 MG PO ×3 (09:01→20:50)
[2024-02-22] MEDS: PLAVIX 75 MG PO (09:01)
[2024-02-22] MEDS: PACERONE 200 MG PO ×3 (09:01→20:50)
[2024-02-22] MEDS: PROTONIX 40 MG PO ×2 (09:01→19:12)
[2024-02-22] MEDS: SENOKOT-S 1 TABLET PO ×2 (09:02→19:12)
[2024-02-22] MEDS: LIDOCAINE 4% PATCH 1 PATCH TOPICAL (09:02)
[2024-02-22] MEDS: LIPITOR 40 MG PO (09:02)
[2024-02-22] MEDS: BACTROBAN 2% OINTMENT 1 APPLIC NASAL ×2 (09:02→19:14)
[2024-02-22] MEDS: FEOSOL 325 MG PO (09:02)
[2024-02-22 10:10] LABS: Glucose - Point of Care 207 mg/dl (70-99)
--- NOTE | 2024-02-22 10:20 | PTCARENOTE ---
250ml albumin being transfused as ordered for labile BP and CVP 6-9.
[2024-02-22 11:03] LABS: Glucose - Point of Care 168 mg/dl (70-99)
[2024-02-22] MEDS: ROXICODONE 2.5 MG PO ×2 (11:23→19:12)
--- NOTE | 2024-02-22 11:31 | CM ---
CM following for DC planning needs.
Patient POD#[address] Surgery. Reviewed initial assessment. Pt. resides w/ spouse/ dtr. in a 1 story home w/ 1 [address]. Functionally, patient is indep. w/ ADLs, mobility without the use of any assisted device.
Anticipated DC plan is for home w/ CT Transitional Care RN.
CM to follow.
--- NOTE | 2024-02-22 12:37 | PTCARENOTE ---
pulmonary artery catheter removed as ordered. Nolan maintained as pt remains on levophed 3mcg.
[2024-02-22] MEDS: LEVOPHED 250 IV (12:46)
[2024-02-22 13:07] LABS: Glucose - Point of Care 107 mg/dl (70-99)
--- NOTE | 2024-02-22 13:15 | W.PN.INTV ---
Today's Communication / Plan
Recommendations
Doing well post extubation, on supplemental O2
No further rash/reaction
Weaning down gtts further per team, further postop care
Encouraged OOB/PT, IS
Transitioning off insulin protocol
Assessment
-
Patient is a 73-year-old female with previous history of CAD status post stent, heart failure with preserved ejection fraction, moderate to severe , hypertension presenting for elective cardiac procedure. Underwent AVR and CABG 02/21/2024,
postoperatively transferred to CVICU on mechanical ventilation for further management.
MvCAD s/p CABG x 3, AVR 02/21/24
Perioperative mechanical ventilation
Postoperative anemia, thrombocytopenia
Anaphylactic reaction, suspect to blood transfusion
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
HTN
CAD s/p PCI to OM 11/19/20
Chronic HFpEF
Moderate-severe
Obesity
HLD
Arthritis
PVC
b/l TKR
x3
Cath PCI to OM 11/19/20
Cath 12/2023
Plan
S/p CAB/AVR POD #1
Titrate off pressors per protocol
ECHO reviewed with low function, EF 45-50%
PA catheter readings reviewed
Management of chest tubes per primary service
Pain control
RASS goal of 0 to -1
Intubated for procedure, extubated and doing well
ABG(s) reviewed/adequate ventilation/oxygenation
CXR with stable postop changes
No prior history of pulmonary disease, possible sleep apnea
Prior PFTs reviewed--suggests restriction/moderately reduced, likely related to BMI
Can add nebulizers if needed
Aspiration precautions
Encouraged incentive spirometry, OOB/ambulation/early mobility
Advance diet as tolerated following extubation
GI prophylaxis if indicated for mechanical ventilation >48 hours
Monitor critical I/O's
Goyal/chest tube output
Hb/platelets postoperatively stable, Hb 8, repeat pending
Trend CBC for now
Can transfuse if indicated for Hb <7, plt <50 in surgical patients
DVT prophylaxis including SCDs
Insulin protocol initiated and ongoing
Transition to SQ/off as indicated per team
Rash noted, now improved following benadryl/epi
Diagnostic Data
Chest X-Ray: 02/21/24-Lines and tubes as described above. No pneumothorax. Stable moderate mid left and mild right lower lung field atelectasis versus pneumonia. Cardiomegaly. Stable
CT Scan: 01/25/24- Chest: No pulmonary nodules, areas of airspace disease, pleural effusions, pericardial effusions or enlarged lymph nodes in the thorax. 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 Origins of the
great vessels from the aortic arch are patent. Visualized upper abdomen demonstrates right renal cysts, some with complex calcifications and measuring up to 2.5 cm. Chronic appearing severe T10 compression deformity.
Echo: 02/21/24- Overall LVEF is approximately 45-50% with mild global hypokinesis. Moderate concentric left ventricular hypertrophy. Stage I Diastolic dysfunction. Patent foramen ovale present with a [id number] shunt. Moderately dilated right
atrium. Trace tricuspid regurgitation. Trace pulmonic insufficiency. Severe aortic stenosis. Mild aortic insufficiency. KAYLI calculates to 0.7 cm2 by continuity equation. Trace mitral regurgitation. Mild posterior MV annular calcification. Mild
diffuse calcified atheroma seen in the aortic arch. Mild sessile atheroma seen in the descending aorta.
PFT's: Spirometry 01/30/24- FVC was 1.82L or 78%. FEV1 was 1.33L or 66%. Ratio 74
Impression: Suspected mild restrictive lung disease.
Reports and relevant images were personally reviewed.
-----
Critical care time 31 mins -- this includes review of history, physical exam, medications, hemodynamic/ventilator parameters, laboratory data, imaging and discussion with house staff, pharmacy, respiratory therapy, players club representative, and nursing.
Subjective Dataa
Subjective Data
Date of Service:
Date of Service: February 22, 2024
Chief Complaint: [employer] Follow Up
Subjective:
Doing well post extubation
No new complaints
Family at bedside
Objective Data
Data Reviewed
Vital Signs / I&O / Oxygen:
Vital Signs
Temp Pulse Resp BP Pulse Ox
98.9 F 73 20 101/58 95
02/22/24 12:00 02/22/24 13:00 02/22/24 13:00 02/22/24 13:00 02/22/24 13:00
Intake and Output
02/21/24 02/22/24 02/23/24
06:59 06:59 06:59
Intake Total 1183.1 / 1183.1 610.4 / 610.4
Output Total 1660 / 1660 285 / 285
Balance -476.9 / -476.9 325.4 / 325.4
SaO2 [SIMV] 100
SaO2 95
Nasal Cannula flow liters per 2
minute
Physical Exam
General: Comfortable and Other (NAD)
HEENT: Normocephalic, Anicteric and Moist Mucous Membranes
Cardiovascular: S1-S2 and Regular Rhythm
Respiratory: Clear, Non-Labored Respirations and Chest Tube
GI: Soft, Non Distended and Non Tender
Neurology: Awake, Alert, Oriented, AO x 3 and No Motor Deficits
Skin: Warm, Dry and Good Color
Labs/Micro/Reports
Lab Data
02/22/24 03:27
02/22/24 03:27
Laboratory Results
02/21/24 02/21/24 02/21/24
15:56 17:10 18:15
PT 21.5 H
INR 1.85
APTT 41.9 H
pH 7.36 7.30 L 7.32 L
pCO2 42 H 43 H 38 H
pO2 106 214 H 163 H
HCO3 23.7 21.2 19.6 L
O2 Delivery Level
02/21/24 02/21/24 02/21/24
20:04 20:19 21:56
PT 18.4 H
INR 1.52
APTT 25.5
pH Cancelled 7.33 L 7.41
pCO2 Cancelled 33 38 H
pO2 Cancelled 192 H 106
HCO3 Cancelled 17.4 L 24.1
O2 Delivery Level Cancelled Not Reportable
02/22/24
03:27
PT 17.7 H
INR 1.45
APTT 28.1
pH 7.39
pCO2 40 H
pO2 85
HCO3 24.2
O2 Delivery Level
Microbiology
02/21/24 08:00 Urine Urine Culture - Preliminary
Gram negative bacilli
[2024-02-22 13:24] LABS: ACT+ - POC 93 Seconds (82-134)
[2024-02-22] MEDS: TYLENOL PO (14:26)
[2024-02-22] MEDS: FLEXERIL 5 MG PO ×2 (14:39→23:19)
[2024-02-22] MEDS: NSS IV (14:39)
--- NOTE | 2024-02-22 14:47 | PTCARENOTE ---
family at bedside, updated. Pt medicated for pain, VSS. Minimal output from CTs. Goyal draining yellow.
[2024-02-22 16:04] LABS: Glucose - Point of Care 68 mg/dl (70-99)
--- NOTE | 2024-02-22 16:10 | PTCARENOTE ---
Blood glucose 68, glycemic completed. Pt asymptomatic, given juice and ordered dinner. Sinus rhythm on tele w BBB, BP 125/46 (67) on 4mcg of levophed. Goyal draining yellow. CT x4 w minimal amount of red drainage. Pain well controlled.
--- NOTE | 2024-02-22 17:21 | PTCARENOTE ---
pt assisted OOB to chair. Tolerated well, denies dizziness. BP 91/47 on 4mcg levophed.
--- NOTE | 2024-02-22 20:00 | PTCARENOTE ---
Assumed care of patient at 1900. Patient found in bed at time of assessment with family at bedside. Patient is AOx4, follows commands appropriately, moves all extremities. Lung sounds are diminished throughout, patient is on 2L via NC with saO2 at
97%, patient has CTx4: R/L pleural to one atrium draining red sanguineous and medsx2 to one atrium draining red sanguineous. Heart sounds have a regular rate and rhythm, there is a slight rub audible on auscultation, trace generalized anasarca is
present, and there are normal palpable pulses throughout. Patient is SR with BBB on the monitor. Patient has active BS throughout all four quadrants. There is clear yellow urine draining out of indwelling kaur catheter. Patient has sternal incision
with aquacell dressing that is CDI, a R groin puncture approx with surg adhesive FX ARTIST, and RLE incision approx with surg adhesive MACIEJ. Patient has R IJ cordis receiving KVO, R arm 20G PIV available for intermittent infusion. Patient is also
receiving 4mcg Levo at this time due to hypotension. Patient received 2.5 Oxy for pain. No other complaints at this time. Patient is stable.
[2024-02-22] MEDS: ROXICODONE 5 MG PO (23:21)
[2024-02-23] VITALS (42 sets, daily range): BP systolic 79–143; BP diastolic 39–100; BMI 33.6
--- NOTE | 2024-02-23 | PTCARENOTE ---
Patient reassessed. Remains SR with BBB on the monitor. Patient with markedly decreased UOP CT PA notified. Orders received to administer 5%albumin followed by 25%albumin. Levo increased to 5. All other VSS.
[2024-02-23] MEDS: FLEXBUMIN 50 IV ×2 (00:06→07:31)
[2024-02-23] MEDS: LEVOPHED 250 IV (04:11)
[2024-02-23 04:32] LABS: Ionized Calcium 1.12 mMOL/L (1.15-1.33)
[2024-02-23 04:39] LABS: Hematocrit 21.3 % (37.0-47.0); Hemoglobin 7.2 g/dL (12.0-16.0); Mean Corp Hgb Conc. 33.8 g/dL (33.0-37.0); Mean Corpuscular Hgb 31.4 pg (27.0-31.0); Mean Platelet Volume 11.1 fL (7.4-10.4); Platelet Count 75 10^3/uL (130-400); Red Blood Cell Count 2.29 10^6/uL (4.20-5.40); Red Cell Dist. Width 15.4 % (11.5-14.5)
[2024-02-23 05:03] LABS: Blood Urea Nitrogen 34 mg/dl (7-17); Calcium 8.2 mg/dl (8.4-10.2); Carbon Dioxide 23 mmol/L (22-30); Chloride 108 mmol/L (98-107); Estimated Creatinine Clearance 39 ml/min; Glucose 147 mg/dl (70-99); Magnesium 2.5 mg/dl (1.6-2.3); Potassium 4.5 mmol/L (3.5-5.1); Sodium 139 mmol/L (135-145); eGFR 43.69
[2024-02-23] MEDS: TYLENOL 1000 MG PO ×3 (05:54→20:21)
[2024-02-23] MEDS: CALCIUM CHLORIDE 10% SYRINGE 60 MG IV (05:54)
--- NOTE | 2024-02-23 06:23 | PTCARENOTE ---
Patient reassessed. VSS. Remains on 5Levo. Patient is SR with BBB on the heart monitor. AM labs obtained. AM hygiene care provided. Ca repleted. Hgb low with AM labs CT PA notified.
--- NOTE | 2024-02-23 06:44 | W.PN.CT ---
Today's Communication / Plan
-
-pod #2
-remains hypotensive with decreased UO, requires Levo - gave 1 Albumin, started 25% Albumin x3
-drips: Levo 5
-CT output: 2 med 105/165, 2 pleur 135/265 in 12/24 hrs
-follow Cr- 1.3 today (1.0 preop)
-wt is up 13 lbs from preop, rales at bases - diurese
-platelets are trending down - 75K today (87K on 02/21 and 133 on 02/20)- follow
-h/h 7.2/21.3 (8.7/21.3 on 02/21)- ? diurese and recheck
-ordered Ca this am (iCa 1.12)
-consider maintaining Goyal for 24 hrs for critical I&O
-current meds (ASA, Plavix, Lipitor, Amio, Protonix, Feosol). Lopressor held while on Levo
-encourage IS
Assessment / Plan
-
- Mod-severe / mv-CAD - s/p bioprosthetic AVR (#19 Inspiris); CABG x3 (DEL REAL-Lad, SVG-disal OM- prox OM branch) by Dr Odonnell on 02/21/24, pod #2
- Intraop KORINA w/ normal biventricular function
- Friable tissues/OM dissection
- CAD - s/p stenting of OM 12/01
- Pre-existing LBBB
- HTN/HLD
- Chronic diastolic CHF
- Hx fatigue/chest pain
- Class 1 obesity (BMI 31)
- OA/ b/l TKR
- Hx PVCs
- C-sections
- Acute postop blood loss anemia - s/p 2 pRBCs
- Acute postop thrombocytopenia- platelet transfusion aborted d/t possible reaction
- Acute type I hypersensitivity reaction/ hives with hypotensive shock, possible transfusion reaction to platelets- improved with Epi, Decadron, Benadryl, Pepcid
- Acute postop hypovolemia with subsequent hypervolemia
- Acute postop atelectasis
- KATHY
Discussed patient care with: Nursing and Care Team
Subjective
Procedure
- s/p bioprosthetic AVR (#19 Inspiris); CABG x3 (DEL REAL-Lad, SVG-disal OM- prox OM branch) by Dr Odonnell on 02/21/24
-
Date of Service: February 23, 2024
Objective Data
-
PT 17.7 Sec (11.4-14.6) H 02/22/24 03:27
INR 1.45 02/22/24 03:27
APTT 28.1 Sec (23.4-35.0) 02/22/24 03:27
Vital Signs
Vital Signs
Temp Pulse Resp BP Pulse Ox
98.8 F 68 19 120/60 99
02/22/24 23:00 02/23/24 00:00 02/23/24 00:00 02/23/24 00:00 02/23/24 00:00
CT Intake/Output/Weight
02/22/24 02/22/24 02/23/24
06:59 18:59 06:59
Intake Total 737.2 / 1183.1 841.7 / 984.2 142.5 / 984.2
Output Total 1025 / 1660 500 / 720 220 / 720
Balance -287.8 / -476.9 341.7 / 264.2 -77.5 / 264.2
SaO2: 99
Physical Exam
-
General: Awake and AOx3
Cardiovascular: Regular rate & rhythm, No Murmurs and No Rub
Respiratory: Decreased Breath Sounds (no wheeze)
Sternum: Stable
Incision: Clean, Dry and Dressing Intact
Extremities: No Edema (DPs and PTs are by Doppler b/l)
Data Reviewed
-
Lab Results: Results Reviewed
Medications: Active Meds Reviewed
Chest X-Ray: Report Reviewed and Image Reviewed
ECG: Report Reviewed and Image Reviewed
[2024-02-23] MEDS: BACTROBAN 2% OINTMENT 1 APPLIC NASAL ×2 (07:31→20:21)
[2024-02-23] MEDS: LASIX 40 MG IV (07:31)
[2024-02-23] MEDS: PACERONE 200 MG PO (07:47)
[2024-02-23] MEDS: LIDOCAINE 4% PATCH 1 PATCH TOPICAL (07:47)
[2024-02-23] MEDS: LIPITOR 40 MG PO (07:48)
[2024-02-23] MEDS: PLAVIX 75 MG PO (07:48)
[2024-02-23] MEDS: SENOKOT-S 1 TABLET PO ×2 (07:48→20:21)
[2024-02-23] MEDS: LOW STRENGTH ASPIRIN 81 MG PO (07:48)
[2024-02-23] MEDS: VITAMIN C 500 MG PO (07:48)
[2024-02-23] MEDS: NEURONTIN 100 MG PO ×3 (07:48→21:21)
[2024-02-23] MEDS: ProAmatine 5 MG PO ×3 (07:48→17:10)
[2024-02-23] MEDS: FEOSOL 325 MG PO (07:48)
[2024-02-23] MEDS: PROTONIX 40 MG PO ×2 (07:48→20:21)
--- NOTE | 2024-02-23 08:00 | PTCARENOTE ---
Baby aspirin administered after low platelet count discussed with CT SHIPPING AND RECEIVING OPERATOR.
[2024-02-23] MEDS: CORDARONE 103 MG IV ×2 (08:05→10:32)
--- NOTE | 2024-02-23 09:20 | PTCARENOTE ---
Assumed care of patient from warehouse shift supervisor RN. AAO x 3 sitting up in the chair, dozing intermittently. Pain well managed at present. SR w/ BBB on monitor. Epicardial wires attached to temporary pacemaker box, box is however turned off per MD order.
Rt radial A line positional at times. Leveled, recalibrated, and flushed. Levophed infusing. See flow sheet for titrations. Chest tubes x 4 to - 20 cm suction. No air leak or crepitus noted. Goyal draining clear yellow urine. Abdomen soft/
non tender/ passing flatus. Good appetite. Surgical sites c,d,i. General plus 1 anasarca noted. Pulses palpable. Plan for day discussed.
--- NOTE | 2024-02-23 09:27 | PTCARENOTE ---
0755 monitor alarmed for Afib rate 140's, pt c/o feeling 'heart racing' bp unchanged. PARAPROFESSIONAL AIDE notified. Amio bolus ordered and administered. Remains A fib.
--- NOTE | 2024-02-23 10:39 | PTCARENOTE ---
1 unit PRBC's transfused. Pt tolerated w/o issue, no reaction noted.
[2024-02-23] MEDS: CORDARONE 518 MG IV (11:32)
--- NOTE | 2024-02-23 11:38 | PTCARENOTE ---
Amiodarone infusion initiated after 2 initial bolus' given. Remains A fib on monitor 90-110's, Denies complaint. VSS otherwise. Levophed titrated down as tolerated. Will continue to monitor closely.
--- NOTE | 2024-02-23 13:42 | W.PN.INTV ---
Today's Communication / Plan
Recommendations
Doing well post procedure
Wean pressor as tolerated, can try PO midodrine to avoid alpha-induced arrhythmias
AFib management per cards
Encouraged OOB/PT/OT, IS
Assessment
-
Patient is a 73-year-old female with previous history of CAD status post stent, heart failure with preserved ejection fraction, moderate to severe , hypertension presenting for elective cardiac procedure. Underwent AVR and CABG 02/21/2024,
postoperatively transferred to CVICU on mechanical ventilation for further management.
MvCAD s/p CABG x 3, AVR 02/21/24
Perioperative mechanical ventilation
Postoperative anemia, thrombocytopenia
Anaphylactic reaction, suspect to blood transfusion
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
HTN
CAD s/p PCI to OM 11/19/20
Chronic HFpEF
Moderate-severe
Obesity
HLD
Arthritis
PVC
b/l TKR
x3
Cath PCI to OM 11/19/20
Cath 12/2023
Plan
S/p CAB/AVR POD #2
Remains on low dose levophed
ECHO reviewed with low function, EF 45-50%
Management of chest tubes per primary service
Pain control
RASS goal of 0 to -1
AFib, cards following
Off amio
Monitor on telemetry
Intubated for procedure, extubated and doing well
ABG(s) reviewed/adequate ventilation/oxygenation
CXR with stable postop changes
No prior history of pulmonary disease, possible sleep apnea
Prior PFTs reviewed--suggests restriction/moderately reduced, likely related to BMI
Can add nebulizers if needed
Aspiration precautions
Encouraged incentive spirometry, OOB/ambulation/early mobility
Advance diet as tolerated following extubation
GI prophylaxis if indicated for mechanical ventilation >48 hours
Monitor critical I/O's
Goyal/chest tube output
Hb/platelets postoperatively stable, Hb 8, repeat pending
Trend CBC for now
Can transfuse if indicated for Hb <7, plt <50 in surgical patients
DVT prophylaxis including SCDs
Insulin protocol initiated and ongoing
Transition to SQ/off as indicated per team
Rash noted, now improved following benadryl/epi
Diagnostic Data
Chest X-Ray: 02/21/24-Lines and tubes as described above. No pneumothorax. Stable moderate mid left and mild right lower lung field atelectasis versus pneumonia. Cardiomegaly. Stable
CT Scan: 01/25/24- Chest: No pulmonary nodules, areas of airspace disease, pleural effusions, pericardial effusions or enlarged lymph nodes in the thorax. 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 Origins of the
great vessels from the aortic arch are patent. Visualized upper abdomen demonstrates right renal cysts, some with complex calcifications and measuring up to 2.5 cm. Chronic appearing severe T10 compression deformity.
Echo: 02/21/24- Overall LVEF is approximately 45-50% with mild global hypokinesis. Moderate concentric left ventricular hypertrophy. Stage I Diastolic dysfunction. Patent foramen ovale present with a [id number]-az-[id number] shunt. Moderately dilated right
atrium. Trace tricuspid regurgitation. Trace pulmonic insufficiency. Severe aortic stenosis. Mild aortic insufficiency. KAYLI calculates to 0.7 cm2 by continuity equation. Trace mitral regurgitation. Mild posterior MV annular calcification. Mild
diffuse calcified atheroma seen in the aortic arch. Mild sessile atheroma seen in the descending aorta.
PFT's: Spirometry 01/30/24- FVC was 1.82L or 78%. FEV1 was 1.33L or 66%. Ratio 74
Impression: Suspected mild restrictive lung disease.
Reports and relevant images were personally reviewed.
-----
Critical care time 31 mins -- this includes review of history, physical exam, medications, hemodynamic/ventilator parameters, laboratory data, imaging and discussion with house staff, pharmacy, respiratory therapy, independent crop consultant, and nursing.
Subjective Dataa
Subjective Data
Date of Service:
Date of Service: February 23, 2024
Chief Complaint: [employer] Follow Up
Subjective:
cardiac events noted, now externally paced
off amio
no new complaints, feeling good
Objective Data
Data Reviewed
Vital Signs / I&O / Oxygen:
Vital Signs
Temp Pulse Resp BP Pulse Ox
98.9 F 115 16 95/83 99
02/23/24 11:38 02/23/24 12:30 02/23/24 11:38 02/23/24 12:30 02/23/24 12:15
Intake and Output
02/22/24 02/23/24 02/24/24
06:59 06:59 06:59
Intake Total 1183.1 / 1183.1 1457.0 / 1457.0 714.4 / 714.4
Output Total 1660 / 1660 1010 / 1010 700 / 700
Balance -476.9 / -476.9 447.0 / 447.0 14.4 / 14.4
SaO2 [SIMV] 100
SaO2 99
Nasal Cannula flow liters per 2
minute
Physical Exam
General: Comfortable and Other (NAD)
HEENT: Normocephalic, Anicteric and Moist Mucous Membranes
Cardiovascular: S1-S2, Irregular Rhythm and Peripheral Edema
Respiratory: Clear, Non-Labored Respirations and Chest Tube
GI: Soft, Non Distended and Non Tender
Neurology: Awake, Alert, Oriented, AO x 3 and No Motor Deficits
Skin: Warm, Dry and Good Color
Labs/Micro/Reports
Lab Data
02/23/24 04:22
02/23/24 04:22
Microbiology
02/21/24 08:00 Urine Urine Culture - Final
Klebsiella pneumoniae
--- NOTE | 2024-02-23 13:57 | CM ---
CM following for DC planning needs.
Patient is POD#[address] Surgery[address]
Pt[address] sleeping soundly when CM attempted to meet w/ patient at bedside.
Anticipated DC plan is to return home w/ spouse + CT Transitional Care RN.
CM to cont. to follow.
--- NOTE | 2024-02-23 14:12 | PTCARENOTE ---
Monitor alarmed for 2.95 second conversion pause at a 1354. Pt returned to Afib 110's. Denies s/s. at 1358 Pt had another pause that was 4.48 seconds. Pt asymptomatic. Assisted back to bed from chair. CT DAIRY PROCESSING EQUIPMENT OPERATOR and this RN attempted to reconnect
pt to temporary pacemaker, however it was inappropriately pacing. Pacemaker wire left insulated with box on at back up of 50/20 and placed in close proximity. Amio drip discontinued at this time . Remains in a fib.
[2024-02-23] MEDS: CALCIUM CHLORIDE 10% SYRINGE 50 ML IV (14:56)
[2024-02-23] MEDS: NSS 500 IV (14:56)
[2024-02-23] MEDS: CALCIUM CHLORIDE 10% SYRINGE 50 MG IV (14:56)
[2024-02-23 15:10] LABS: Hematocrit 25.2 % (37.0-47.0); Mean Corp Hgb Conc. 34.5 g/dL (33.0-37.0); Mean Corpuscular Hgb 31.1 pg (27.0-31.0); Mean Platelet Volume 11.3 fL (7.4-10.4); Platelet Count 94 10^3/uL (130-400); Red Cell Dist. Width 15.5 % (11.5-14.5); White Blood Cell Count 14.5 10^3/uL (4.8-10.8)
[2024-02-23 15:17] LABS: Hemoglobin 8.7 g/dL (12.0-16.0)
--- NOTE | 2024-02-23 15:20 | W.PN.CD ---
Addendum entered and electronically signed by Yury Larios MD 02/23/24 16:43:
Patient seen and examined in collaboration with MOLD RELEASE WORKER; agree with below.
-Patient is having 4-5-second pauses on telemetry; amiodarone now discontinued.
-Initially, the patient's temporary wire was not capturing; EP cardiology notified for likely need for permanent pacemaker implantation.
-CT Surgery PAs were able to gain appropriate capture of the temporary wire after some instruction by EP Cardiology.
-Continue to monitor the patient closely on telemetry; will hold off on permanent pacemaker implantation at this time.
Original Note:
Today's Communication / Plan
-
Follow telemetry
EKG in a.m.
Impression / Plan
-
Background: 74F presents for CABG and aortic valve replacement
Dice Maker: Dr. Burdick
CAD and moderate to severe aortic stenosis s/p CABG x 3 and aortic valve replacement (#19 Inspiris) by Dr. Odonnell 02/21/2024
-During closure she developed VF, shock and magnesium administered
-Pre and post KORINA unchanged
-EKG with left bundle branch block, unchanged
-Postoperatively had shock felt to be anaphylactic
-ECG shows SR LBBB (had LBBB preop)
Atrial fibrillation with rapid ventricular response
Pauses with heart block
-Amiodarone discontinued, calcium ordered
-Longest pause nearly 5 seconds
-Wires are not capturing, may need to consider PPM versus temp wire
Type I hypersensitivity reaction with hypotensive shock
-Status post Decadron, epinephrine, and Benadryl, & Pepcid
-Offending agent remains unknown (platelets, PRBC, antibiotic, protamine) but no suspicious of platelets
Postoperative hypovolemia with subsequent hypervolemia
Acute postoperative anemia
PFO
Atheroma in aortic arch and descending aorta by TTE
Hypertension, currently on vasopressor
Subjective:
Some mild fatigue and shortness of breath with pauses
Physical Exam
Vital Signs/Labs
Vital Signs
Temp Pulse Resp BP Pulse Ox
98.9 F 115 16 95/83 99
02/23/24 11:38 02/23/24 12:30 02/23/24 11:38 02/23/24 12:30 02/23/24 12:15
02/22/24 02/23/24 02/24/24
06:59 06:59 06:59
Actual Weight 81 kg 83.3 kg
02/23/24 15:02
PT 17.7 Sec (11.4-14.6) H 02/22/24 03:27
INR 1.45 02/22/24 03:27
APTT 28.1 Sec (23.4-35.0) 02/22/24 03:27
Magnesium 2.5 mg/dl (1.6-2.3) H 02/23/24 04:22
Physical Exam
Constitutional: No acute distress and Comfortable
EENT: Anicteric and Moist mucous membranes
Cardiovascular: Rhythm/rate is irregular and S1S2 is normal
Respiratory: Respiratory effort normal and Crackles Present
GI: Soft, Distention absent, Flat, Non tender and Normal bowel sounds
Neuro/Psych: AO x 3
Other: Skin (Warm and dry)
Data Reviewed
-
Date of Service: February 23, 2024
[2024-02-23 15:42] LABS: ALT (SGPT) 51 U/L (0-35); AST (SGOT) 112 U/L (14-36); Albumin 3.7 g/dl (3.5-5.0); Alkaline Phosphatase 51 U/L (38-126); Blood Urea Nitrogen 35 mg/dl (7-17); Calcium 8.8 mg/dl (8.4-10.2); Carbon Dioxide 25 mmol/L (22-30); Chloride 105 mmol/L (98-107); Estimated Creatinine Clearance 36 ml/min; Glucose 187 mg/dl (70-99); Potassium 4.5 mmol/L (3.5-5.1); Sodium 136 mmol/L (135-145); Total Bilirubin 1.2 mg/dl (0.2-1.3); Total Protein 5.4 g/dl (6.3-8.2); eGFR 39.97
--- NOTE | 2024-02-23 15:47 | PTCARENOTE ---
Pt with multiple and frequent pauses from 2-5 seconds long. Pt symptomatic with a few of these episodes. BP dropped and pt appeared be waking up in a fog. Emergency Vehicle Operator in room to assess. Epicardial pacemaker reprogrammed and tested. Bedrest
for now. Remains in a fib. VSS.
--- NOTE | 2024-02-23 20:00 | PTCARENOTE ---
Received pt from dayshift; pt resting comfortably in bed; AAOX4 denies pain; Pt converted from Afib to NSR/SB ~ at 1900, VSS; heart sounds audible, radial and DP pulses palpable, trace generalized edema, temp epicardial v-wires set to VVI rate of
30, MA of 11, Mv of 0.8; lungs diminished throughout, spo2 98% on 2 LNC, right/left pleural CT and x2 MS CT to -20 wall suction, no air leaks, no tidaling, no crepitus; +BS x4 quadrants, abdomen soft non tender; pt voiding, has not voiding for this
shift, will monitor UOP; surgical sites maintained' right radial A-line leveled and zeroed, right IJ cordis and PIV maintained; call vega within reach; will continue to monitor.
--- NOTE | 2024-02-23 20:30 | PTCARENOTE ---
Pt's pacer box was inappropriately pacing/capturing; CVAP adjust MA to lowest setting; pt remains in NSR with stable VS; will continue to monitor.
--- NOTE | 2024-02-23 20:30 | PTCARENOTE ---
100mg Tylenol scheduled for 2200 given early per CVPA.
[2024-02-24] VITALS (35 sets, daily range): BP systolic 88–143; BP diastolic 43–94; PULSE 72; O2SAT 92–96; BMI 33.7
--- NOTE | 2024-02-24 | PTCARENOTE ---
Pt assessment unchanged; NSR on monitor, VSS; A-line is positional and not constantly correlating to automatic blood pressure cuff; CVPA aware and monitoring; pt has not voided since 1700, pt stated she did not have to void at this time, bladder
scanned for 274mls; will continue to monitor.
--- NOTE | 2024-02-24 04:00 | PTCARENOTE ---
Pt assessment unchanged; NSR on monitor, VSS; on going bladder scans, see worklist for details; EKG obtained, labs drawn and sent; call vega within reach; will continue to monitor.
[2024-02-24 04:26] LABS: Hematocrit 24.2 % (37.0-47.0); Hemoglobin 8.2 g/dL (12.0-16.0); Mean Corp Hgb Conc. 33.9 g/dL (33.0-37.0); Mean Corpuscular Hgb 30.7 pg (27.0-31.0); Mean Corpuscular Volume 90.6 fL (81.0-99.0); Platelet Count 70 10^3/uL (130-400); Red Blood Cell Count 2.67 10^6/uL (4.20-5.40); Red Cell Dist. Width 15.7 % (11.5-14.5); White Blood Cell Count 9.2 10^3/uL (4.8-10.8)
[2024-02-24] MEDS: ROXICODONE 5 MG PO (04:33)
--- NOTE | 2024-02-24 04:45 | PTCARENOTE ---
Pt assisted to commode to void. Void was 300mls, PVR scan was 230. will continue to monitor.
[2024-02-24 04:49] LABS: Blood Urea Nitrogen 36 mg/dl (7-17); Calcium 9.7 mg/dl (8.4-10.2); Carbon Dioxide 25 mmol/L (22-30); Chloride 108 mmol/L (98-107); Estimated Creatinine Clearance 46 ml/min; Glucose 108 mg/dl (70-99); Magnesium 2.1 mg/dl (1.6-2.3); Potassium 4.6 mmol/L (3.5-5.1); Sodium 138 mmol/L (135-145); eGFR 53.39
--- NOTE | 2024-02-24 05:14 | W.PN.CT ---
Addendum entered and electronically signed by Lennox Odonnell MD 02/24/24 09:16:
I saw and examined the patient.
The PA's note was reviewed and I agree with the note.
Comment:
Remains in NSR since 7pm last night, levophed weaned OFF. Remains on midodrine.
- D/C CTs today
- Follow Hgb/PLTs
- Diuresis (creat improved to 1.1 today)
- OOB/IS/ambulate
Original Note:
Today's Communication / Plan
-
-pod #3
-no issues overnight.
-remained in nsr overnight, no pauses or significant bradycardia
-pacer is pacing inappropriately at the lowest sensitivity, decreased V output to min to avoid inappropriate R on T pacing (VVI 30)- monitor rhythm
-CT output: 2 med 130/270, 2 pleur 200/270 in 12/24 hrs
-s/p 1 pRBC on 02/22 for hg 7.2, followed by Lasix- h/h 8.2 today
-Cr improved- 1.1 today (1.0 preop)
-follow platelets- 70K today
-wt is up 14 lbs from preop, rales at bases - consider bid Lasix if BP allows (on Midodrine 5 tid)
-current meds (ASA, Plavix, Lipitor, Protonix, Feosol). BB and Amio held d/t conversion pauses
-encourage IS
-appreciate everyone's input
Assessment / Plan
-
- Mod-severe / mv-CAD - s/p bioprosthetic AVR (#19 Inspiris); CABG x3 (DEL REAL-Lad, SVG-disal OM- prox OM branch) by Dr Odonnell on 02/21/24, pod #3
- Intraop KORINA w/ normal biventricular function
- Friable tissues/OM dissection
- CAD - s/p stenting of OM 12/01
- Pre-existing LBBB
- HTN/HLD
- Chronic diastolic CHF
- Hx fatigue/chest pain
- Class 1 obesity (BMI 31)
- OA/ b/l TKR
- Hx PVCs
- C-sections
- Acute postop blood loss anemia - s/p 2 pRBCs
- Acute postop thrombocytopenia- platelet transfusion aborted d/t possible reaction
- Acute type I hypersensitivity reaction/ hives with hypotensive shock, possible transfusion reaction to platelets- improved with Epi, Decadron, Benadryl, Pepcid
- Acute postop hypovolemia with subsequent hypervolemia
- Acute postop atelectasis
- KATHY- improved
- Acute postop paroxysmal a-fib with RVR with multiple conversion pauses on 02/23/24
Discussed patient care with: Nursing and Care Team
Subjective
Procedure
- s/p bioprosthetic AVR (#19 Inspiris); CABG x3 (DEL REAL-Lad, SVG-disal OM- prox OM branch) by Dr Odonnell on 02/21/24
-
Date of Service: February 24, 2024
Objective Data
-
Lab Results
02/24/24 03:50
02/24/24 03:50
PT 17.7 Sec (11.4-14.6) H 02/22/24 03:27
INR 1.45 02/22/24 03:27
APTT 28.1 Sec (23.4-35.0) 02/22/24 03:27
Vital Signs
Vital Signs
Temp Pulse Resp BP Pulse Ox
98.9 F 63 18 102/49 98
02/24/24 00:00 02/24/24 01:45 02/24/24 00:00 02/24/24 01:31 02/24/24 01:45
CT Intake/Output/Weight
02/23/24 02/23/24 02/24/24
06:59 18:59 06:59
Intake Total 615.3 / 1457.0 1471.8 / 1551.8 80 / 1551.8
Output Total 510 / 1010 960 / 1590 630 / 1590
Balance 105.3 / 447.0 511.8 / -38.2 -550 / -38.2
SaO2: 98
Physical Exam
-
General: Awake and AOx3
Cardiovascular: Regular rate & rhythm, No Murmurs and No Rub
Respiratory: Decreased Breath Sounds (no wheeze)
Sternum: Stable
Incision: Clean, Dry and Dressing Intact
Extremities: No Edema, 1+ DPs b/l
Data Reviewed
-
Lab Results: Results Reviewed
Medications: Active Meds Reviewed
Chest X-Ray: Report Reviewed and Image Reviewed
ECG: Report Reviewed and Image Reviewed
[2024-02-24] MEDS: TYLENOL 1000 MG PO ×3 (07:08→21:22)
[2024-02-24] MEDS: PROTONIX 40 MG PO ×2 (08:18→19:49)
[2024-02-24] MEDS: ProAmatine 5 MG PO ×4 (08:18→19:49)
[2024-02-24] MEDS: PLAVIX 75 MG PO (08:18)
[2024-02-24] MEDS: LOW STRENGTH ASPIRIN 81 MG PO (08:18)
[2024-02-24] MEDS: NEURONTIN 100 MG PO ×3 (08:18→21:22)
[2024-02-24] MEDS: LIPITOR 40 MG PO (08:18)
[2024-02-24] MEDS: SENOKOT-S 1 TABLET PO ×2 (08:18→19:49)
[2024-02-24] MEDS: VITAMIN C 500 MG PO (08:18)
[2024-02-24] MEDS: FEOSOL 325 MG PO (08:18)
[2024-02-24] MEDS: LASIX 40 MG IV ×2 (08:18→14:03)
[2024-02-24] MEDS: BACTROBAN 2% OINTMENT 1 APPLIC NASAL ×2 (08:19→19:49)
[2024-02-24] MEDS: LIDOCAINE 4% PATCH 1 PATCH TOPICAL (08:19)
--- NOTE | 2024-02-24 08:45 | PTCARENOTE ---
Assumed care of patient at 0700. Pt is awake, alert, and oriented. No complaints of pain at this time. Pt remains SR with HR 70's. BP 118/53 MAP 74. Epicardial V wire in place set to 30.8, no pacing noted on telemetry. Pulse oximetry 98% on 2L
nasal cannula. Pulse oximetry 80's while on room air. Mediastinal chest tubes x2 and left and right pleural chest tubes in place, no sign of air leak or crepitus, drainage serous. Pt tolerating PO diet. Voiding. Midsternal incision with Aquacel
dressing CDI. Right leg incision approximated and MACIEJ. Right radial A line in place. Right IJ cordis in place with KVO.
--- NOTE | 2024-02-24 09:00 | W.PN.INTV ---
Today's Communication / Plan
Recommendations
Doing well today, off pressors
Chest tubes to be discontinued today
Off insulin gtt
Encouraged OOB, IS
Transfer to tele per team, we will sign off upon transfer
Assessment
-
Patient is a 73-year-old female with previous history of CAD status post stent, heart failure with preserved ejection fraction, moderate to severe , hypertension presenting for elective cardiac procedure. Underwent AVR and CABG 02/21/2024,
postoperatively transferred to CVICU on mechanical ventilation for further management.
MvCAD s/p CABG x 3, AVR 02/21/24
Perioperative mechanical ventilation
Postoperative anemia, thrombocytopenia
Anaphylactic reaction, suspect to blood transfusion
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
HTN
CAD s/p PCI to OM 11/19/20
Chronic HFpEF
Moderate-severe
Obesity
HLD
Arthritis
PVC
b/l TKR
x3
Cath PCI to OM 11/19/20
Cath 12/2023
Plan
S/p CAB/AVR POD #3
Off pressors last 12 hours
ECHO reviewed with low function, EF 45-50%
Management of chest tubes per primary service
Pain control
RASS goal of 0 to -1
AFib, cards following
Off amio
Monitor on telemetry
Intubated for procedure, extubated and doing well
ABG(s) reviewed/adequate ventilation/oxygenation
CXR with stable postop changes
No prior history of pulmonary disease, possible sleep apnea
Prior PFTs reviewed--suggests restriction/moderately reduced, likely related to BMI
Can add nebulizers if needed
Aspiration precautions
Encouraged incentive spirometry, OOB/ambulation/early mobility
Advance diet as tolerated following extubation
GI prophylaxis if indicated for mechanical ventilation >48 hours
Monitor critical I/O's
Goyal/chest tube output
Hb/platelets postoperatively stable, Hb 8, repeat pending
Trend CBC for now
Can transfuse if indicated for Hb <7, plt <50 in surgical patients
DVT prophylaxis including SCDs
Insulin protocol initiated and ongoing
Transition to SQ/off as indicated per team
Rash noted, now improved following benadryl/epi
Diagnostic Data
Chest X-Ray: 02/21/24-Lines and tubes as described above. No pneumothorax. Stable moderate mid left and mild right lower lung field atelectasis versus pneumonia. Cardiomegaly. Stable
CT Scan: 01/25/24- Chest: No pulmonary nodules, areas of airspace disease, pleural effusions, pericardial effusions or enlarged lymph nodes in the thorax. 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 Origins of the
great vessels from the aortic arch are patent. Visualized upper abdomen demonstrates right renal cysts, some with complex calcifications and measuring up to 2.5 cm. Chronic appearing severe T10 compression deformity.
Echo: 02/21/24- Overall LVEF is approximately 45-50% with mild global hypokinesis. Moderate concentric left ventricular hypertrophy. Stage I Diastolic dysfunction. Patent foramen ovale present with a [id number]-frfzy shunt. Moderately dilated right
atrium. Trace tricuspid regurgitation. Trace pulmonic insufficiency. Severe aortic stenosis. Mild aortic insufficiency. KAYLI calculates to 0.7 cm2 by continuity equation. Trace mitral regurgitation. Mild posterior MV annular calcification. Mild
diffuse calcified atheroma seen in the aortic arch. Mild sessile atheroma seen in the descending aorta.
PFT's: Spirometry 01/30/24- FVC was 1.82L or 78%. FEV1 was 1.33L or 66%. Ratio 74
Impression: Suspected mild restrictive lung disease.
Reports and relevant images were personally reviewed.
-----
Critical care time 31 mins -- this includes review of history, physical exam, medications, hemodynamic/ventilator parameters, laboratory data, imaging and discussion with house staff, pharmacy, respiratory therapy, lead ramp service man, and nursing.
Subjective Dataa
Subjective Data
Date of Service:
Date of Service: February 24, 2024
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
Subjective:
doing well today, in chair, no new complaints
remains on O2, IS effort poor
off pressors/insulin
Objective Data
Data Reviewed
Vital Signs / I&O / Oxygen:
Vital Signs
Temp Pulse Resp BP Pulse Ox
98.8 F 66 16 105/56 99
02/24/24 04:00 02/24/24 08:30 02/24/24 08:00 02/24/24 08:00 02/24/24 08:30
Intake and Output
02/23/24 02/24/24 02/25/24
06:59 06:59 06:59
Intake Total 1457.0 / 1457.0 1571.8 / 1571.8 20 / 20
Output Total 1010 / 1010 1590 / 1590 50 / 50
Balance 447.0 / 447.0 -18.2 / -18.2 -30 / -30
SaO2 [SIMV] 100
SaO2 99
Nasal Cannula flow liters per 2
minute
Physical Exam
General: Comfortable and Other (NAD)
HEENT: Normocephalic, Anicteric and Moist Mucous Membranes
Cardiovascular: S1-S2, Irregular Rhythm and Peripheral Edema
Respiratory: Clear, Non-Labored Respirations and Chest Tube
GI: Soft, Non Distended and Non Tender
Neurology: Awake, Alert, Oriented, AO x 3 and No Motor Deficits
Skin: Warm, Dry and Good Color
Labs/Micro/Reports
Lab Data
02/24/24 03:50
02/24/24 03:50
Microbiology
02/21/24 08:00 Urine Urine Culture - Final
Klebsiella pneumoniae
--- NOTE | 2024-02-24 10:23 | W.PN.CD ---
Today's Communication / Plan
-
-Patient with transient pauses yesterday due to failure for temporary wire to capture; settings adjusted, now resolved.
-No more pauses; device has not had to pace anymore.
-Amiodarone discontinued.
-Continue nuclear monitoring technician; temporary wire still in place.
Impression / Plan
-
Background: 74F presents for CABG and aortic valve replacement
Commercial Title Examiner: Dr. Burdick
CAD and moderate to severe aortic stenosis s/p CABG x 3 and aortic valve replacement (#19 Inspiris) by Dr. Odonnell 02/21/2024:
-During closure she developed VF, shock and magnesium administered
-Pre and post KORINA unchanged
-EKG with left bundle branch block, unchanged
-Postoperatively had shock felt to be anaphylactic
-ECG shows SR LBBB (had LBBB preop)
-Clinically stable; continue routine postsurgical care as directed by CT Surgery team.
Atrial fibrillation with rapid ventricular response/pauses with heart block:
-Patient with transient pauses yesterday due to failure for temporary wire to capture; settings adjusted, now resolved.
-No more pauses; device has not had to pace anymore.
-Amiodarone discontinued.
-Longest pause was nearly 5 seconds
-Continue nuclear monitoring technician; temporary wire still in place.
Type I hypersensitivity reaction with hypotensive shock
-Status post Decadron, epinephrine, and Benadryl, & Pepcid
-Offending agent remains unknown (platelets, PRBC, antibiotic, protamine) but no suspicious of platelets
Postoperative hypovolemia with subsequent hypervolemia
Acute postoperative anemia
PFO
Atheroma in aortic arch and descending aorta by TTE
Hypertension, currently on vasopressor
Subjective:
No major events overnight. No more pauses; device has not had to pace anymore .
Physical Exam
Vital Signs/Labs
Vital Signs
Temp Pulse Resp BP Pulse Ox
98.8 F 77 16 113/64 98
02/24/24 08:00 02/24/24 09:15 02/24/24 08:00 02/24/24 09:00 02/24/24 08:45
02/23/24 02/24/24 02/25/24
06:59 06:59 06:59
Actual Weight 83.3 kg 83.5 kg
02/24/24 03:50
02/24/24 03:50
PT 17.7 Sec (11.4-14.6) H 02/22/24 03:27
INR 1.45 02/22/24 03:27
APTT 28.1 Sec (23.4-35.0) 02/22/24 03:27
Magnesium 2.1 mg/dl (1.6-2.3) 02/24/24 03:50
Physical Exam
Constitutional: No acute distress and Comfortable
EENT: Anicteric and Moist mucous membranes
Cardiovascular: Rhythm & rate is regular, Pedal edema is absent, Systolic murmur absent and S1S2 is normal
Respiratory: Respiratory effort normal and Lungs clear to auscul.
GI: Soft
Neuro/Psych: AO x 3
Other: Skin
Data Reviewed
-
Date of Service: February 24, 2024
EKG: Tracing Personally Visualized and interpreted (Telemetry: Sinus rhythm)
Medical Tests (PFT, Pathology etc): Discussed with Physician (CT Surgery), Discussed with Nurse and Discussed with Patient
Labs: Labs Reviewed by me
Critical Care Time (in minutes): 40
--- NOTE | 2024-02-24 11:45 | PTCARENOTE ---
Right radial [place] removed per order. Pt OOB to chair. Ambulated in lyle with cardiac rehab using rolling walker. Pt assisted back to bed, chest tubes x4 removed without issue. Pt remains SR with HR 70's. BP 106/56 MAP 73. Pulse oximetry 98% on 1L
nasal cannula.
[2024-02-24] MEDS: NSS IV (16:19)
--- NOTE | 2024-02-24 16:30 | PTCARENOTE ---
Pt remains SR with HR 70's. BP 118/71 MAP 84. Pulse oximetry 99% on room air. Pt ambulated to bathroom, brushed teeth and washed face. Assessment remains unchanged.
--- NOTE | 2024-02-24 20:00 | PTCARENOTE ---
Received pt from [facility]; pt resting comfortably in chair with family at bedside; pt was assisted with walker to restroom and back to bed; pt is AAOX4, denies pain; NSR with BBB, VSS; heart sounds audible, possible rub present, radial and DP pulses
palpable, temp epicardial v-wires set to VVI, rate of 30, MA of 1, Mv of 0.8; lung sounds diminished throughout, IS is 500, spo2 is 92% on RA; +BS x4 quadrants, abdomen soft non tender; pt voiding clear yellow urine; surgical sites maintained; right
IJ cordis and PIV maintained; call vega within reach; will continue to monitor.
[2024-02-25] VITALS (10 sets, daily range): BP systolic 100–126; BP diastolic 51–90; BMI 32.8
--- NOTE | 2024-02-25 | PTCARENOTE ---
Pt assessment unchanged; pt resting comfortably in bed; 2LNC overnight; NSR on monitor, VSS; call vega within reach; will continue to monitor.
[2024-02-25 03:59] LABS: Hematocrit 23.8 % (37.0-47.0); Hemoglobin 8.2 g/dL (12.0-16.0); Mean Corp Hgb Conc. 34.5 g/dL (33.0-37.0); Mean Corpuscular Hgb 31.3 pg (27.0-31.0); Mean Corpuscular Volume 90.8 fL (81.0-99.0); Mean Platelet Volume 10.9 fL (7.4-10.4); Platelet Count 90 10^3/uL (130-400); Red Blood Cell Count 2.62 10^6/uL (4.20-5.40); Red Cell Dist. Width 15.2 % (11.5-14.5); White Blood Cell Count 7.8 10^3/uL (4.8-10.8)
--- NOTE | 2024-02-25 04:00 | PTCARENOTE ---
Pt assessment unchanged; NSR on monitor, VSS; labs drawn and sent; call vega in reach; will continue to monitor.
[2024-02-25 04:36] LABS: Blood Urea Nitrogen 34 mg/dl (7-17); Calcium 8.9 mg/dl (8.4-10.2); Carbon Dioxide 30 mmol/L (22-30); Chloride 105 mmol/L (98-107); Estimated Creatinine Clearance 51 ml/min; Glucose 94 mg/dl (70-99); Magnesium 1.9 mg/dl (1.6-2.3); Sodium 140 mmol/L (135-145); eGFR 59.86
--- NOTE | 2024-02-25 05:29 | W.PN.CT ---
Addendum entered and electronically signed by Lennox Odonnell MD 02/25/24 11:12:
I saw and examined the patient.
The PA's note was reviewed and I agree with the note.
Comment:
POD#4 s/p CABG x 3, AVR
No major overnight events
OOB/IS/ambulate
Continue current medications
Diuresis today
Resume low-dose BB
D/C planning for 1-2 days
Original Note:
Today's Communication / Plan
-
-pod #4
-no issues overnight. DC CTs yesterday
-remained in nsr, again no pauses or significant bradycardia last night
-pacer was pacing inappropriately at the lowest sensitivity, decreased V output to min to avoid inappropriate R on T pacing (VVI 30)- monitor rhythm
-follow platelets- 90K today, 70k yesterday
-wt is up ~14 lbs from preop, s/p 40 mg IV lasix BID yesterday UOP 250/2425 in 12/24 hrs
-current meds (ASA, Plavix, Lipitor, Protonix, Feosol). BB and Amio held d/t conversion pauses
-encourage IS/OOB/ambulate
Assessment / Plan
-
- Mod-severe / mv-CAD - s/p bioprosthetic AVR (#19 Inspiris); CABG x3 (DEL REAL-Lad, SVG-disal OM- prox OM branch) by Dr Odonnell on 02/21/24, pod #4
- Intraop KORINA w/ normal biventricular function
- Friable tissues/OM dissection
- CAD - s/p stenting of OM 12/01
- Pre-existing LBBB
- HTN/HLD
- Chronic diastolic CHF
- Hx fatigue/chest pain
- Class 1 obesity (BMI 31)
- OA/ b/l TKR
- Hx PVCs
- C-sections
- Acute postop blood loss anemia - s/p 2 pRBCs
- Acute postop thrombocytopenia- platelet transfusion aborted d/t possible reaction
- Acute type I hypersensitivity reaction/ hives with hypotensive shock, possible transfusion reaction to platelets- improved with Epi, Decadron, Benadryl, Pepcid
- Acute postop hypovolemia with subsequent hypervolemia
- Acute postop atelectasis
- KATHY- improved
- Acute postop paroxysmal a-fib with RVR with multiple conversion pauses on 02/23/24
Subjective
Procedure
- s/p bioprosthetic AVR (#19 Inspiris); CABG x3 (DEL REAL-Lad, SVG-disal OM- prox OM branch) by Dr Odonnell on 02/21/24
-
Date of Service: February 25, 2024
Objective Data
-
Lab Results
02/25/24 03:46
02/25/24 03:46
PT 17.7 Sec (11.4-14.6) H 02/22/24 03:27
INR 1.45 02/22/24 03:27
APTT 28.1 Sec (23.4-35.0) 02/22/24 03:27
Vital Signs
Vital Signs
Temp Pulse Resp BP Pulse Ox
99.0 F 75 16 120/94 92
02/24/24 19:45 02/24/24 18:30 02/24/24 19:45 02/24/24 18:12 02/24/24 20:00
CT Intake/Output/Weight
02/24/24 02/24/24 02/25/24
06:59 18:59 06:59
Intake Total 100 / 1571.8 100 / 130 30 / 130
Output Total 630 / 1590 2330 / 2580 250 / 2580
Balance -530 / -18.2 -2230 / -2450 -220 / -2450
SaO2: 92
Physical Exam
-
General: Awake and Oriented
Cardiovascular: Regular rate & rhythm, No Murmurs and No Rub
Respiratory: Equal and Rales
Sternum: Stable
Incision: Clean, Dry and Intact
Extremities: No Edema and No Erythema
Data Reviewed
-
Lab Results: Results Reviewed
Medications: Active Meds Reviewed
Chest X-Ray: Report Reviewed
ECG: Report Reviewed
--- NOTE | 2024-02-25 05:45 | PTCARENOTE ---
Pt assessment unchanged; pt assisted out of bed to restroom and then into the chair for the AM; pt is ambulating with the assistance of rolling walker; pt is now on RA with Spo2 92%; pt denies pain; call vega is within reach; will continue to
monitor.
[2024-02-25] MEDS: TYLENOL 1000 MG PO ×3 (05:47→21:27)
[2024-02-25] MEDS: NEURONTIN 100 MG PO ×3 (08:05→21:28)
[2024-02-25] MEDS: PLAVIX 75 MG PO (08:05)
[2024-02-25] MEDS: FEOSOL 325 MG PO (08:05)
[2024-02-25] MEDS: MAGNESIUM OXIDE 500 MG PO ×2 (08:06→19:40)
[2024-02-25] MEDS: LOW STRENGTH ASPIRIN 81 MG PO (08:06)
[2024-02-25] MEDS: VITAMIN C 500 MG PO (08:06)
[2024-02-25] MEDS: SENOKOT-S 1 TABLET PO (08:06)
[2024-02-25] MEDS: LIPITOR 40 MG PO (08:06)
[2024-02-25] MEDS: LIDOCAINE 4% PATCH 1 PATCH TOPICAL (08:06)
[2024-02-25] MEDS: PROTONIX 40 MG PO ×2 (08:06→19:40)
[2024-02-25] MEDS: ProAmatine 5 MG PO ×2 (08:06→19:40)
[2024-02-25] MEDS: BACTROBAN 2% OINTMENT 1 APPLIC NASAL (08:07)
--- NOTE | 2024-02-25 09:09 | PTCARENOTE ---
Assumed care of patient at 0700. Pt is awake, alert, and oriented. No complaints of pain. Pt remains SR with HR 70's. BP 100/51 MAP 67. Epicardial V wire remains in place set to 30/1/0.8, no pacing noted. Pt on room air, pulse oximetry 95%. Pt
achieving 1000 with IS, continued use encouraged. pt tolerating low cholesterol diet. Voiding without issue. Midsternal incision Aquacel dressing CDI. Right leg incision approximated and MACIEJ. Right IJ cordis in place with KVO. Pt OOB in chair
resting comfortably with call vega within reach.
--- NOTE | 2024-02-25 10:32 | W.PN.CD ---
Today's Communication / Plan
-
-Remains clinically stable; continue routine postsurgical care as directed by CT Surgery team.
-Telemetry stable with no need for intermittent pacing.
-Can place on low-dose metoprolol tartrate 12.5 mg BID; avoid amiodarone for now.
-Continue patient monitor; temporary wire still in place.
Impression / Plan
-
Background: 74F presents for CABG and aortic valve replacement
Orthoptist: Dr. Burdick
CAD and moderate to severe aortic stenosis s/p CABG x 3 and aortic valve replacement (#19 Inspiris) by Dr. Odonnell 02/21/2024:
-During closure she developed VF, shock and magnesium administered
-Pre and post KORINA unchanged
-EKG with left bundle branch block, unchanged
-Postoperatively had shock felt to be anaphylactic
-ECG shows SR LBBB (had LBBB preop)
-Remains clinically stable; continue routine postsurgical care as directed by CT Surgery team.
Atrial fibrillation with rapid ventricular response/pauses with heart block:
-Patient with transient pauses on Monday (longest almost 5 seconds) due to failure for temporary wire to capture; settings adjusted, now resolved.
-Telemetry stable with no need for intermittent pacing.
-Can place on low-dose metoprolol tartrate 12.5 mg BID; avoid amiodarone for now.
-Longest pause was nearly 5 seconds
-Continue patient monitor; temporary wire still in place.
Type I hypersensitivity reaction with hypotensive shock
-Status post Decadron, epinephrine, and Benadryl, & Pepcid
-Offending agent remains unknown (platelets, PRBC, antibiotic, protamine) but no suspicious of platelets
Postoperative hypovolemia with subsequent hypervolemia
Acute postoperative anemia
PFO
Atheroma in aortic arch and descending aorta by TTE
Hypertension, currently on vasopressor
Subjective:
No major events overnight. Telemetry stable.
Physical Exam
Vital Signs/Labs
Vital Signs
Temp Pulse Resp BP Pulse Ox
98.4 F 84 16 100/51 95
02/25/24 07:56 02/25/24 10:00 02/25/24 07:56 02/25/24 07:57 02/25/24 09:02
02/24/24 02/25/24 02/26/24
06:59 06:59 06:59
Actual Weight 83.5 kg 81.2 kg
02/25/24 03:46
02/25/24 03:46
PT 17.7 Sec (11.4-14.6) H 02/22/24 03:27
INR 1.45 02/22/24 03:27
APTT 28.1 Sec (23.4-35.0) 02/22/24 03:27
Magnesium 1.9 mg/dl (1.6-2.3) 02/25/24 03:46
Physical Exam
Constitutional: No acute distress and Comfortable
EENT: Anicteric
Cardiovascular: Rhythm & rate is regular, Pedal edema is absent, Systolic murmur absent and S1S2 is normal
Respiratory: Respiratory effort normal and Lungs clear to auscul.
GI: Soft
Neuro/Psych: AO x 3
Other: Skin (Warm, dry, intact)
Data Reviewed
-
Date of Service: February 25, 2024
EKG: Tracing Personally Visualized and interpreted (Telemetry: Sinus rhythm)
Medical Tests (PFT, Pathology etc): Discussed with Physician (CT surgery Team), Discussed with Nurse and Discussed with Patient
Labs: Labs Reviewed by me
Critical Care Time (in minutes): 36
[2024-02-25] MEDS: LOPRESSOR 12.5 MG PO ×2 (11:30→19:40)
--- NOTE | 2024-02-25 12:11 | PTCARENOTE ---
12.5mg Lopressor administered per order. Pt remains SR with HR 70's. BP 108/61 MAP 74. Pulse oximetry 92% on room air. Pt ambulated with RN and rolling walker in hallway without issue. Now OOB in chair eating lunch.
[2024-02-25] MEDS: NSS 500 IV (16:00)
--- NOTE | 2024-02-25 16:17 | PTCARENOTE ---
Pt with no changes in assessment. Remains SR with HR 70's. BP 101/90 MAP 96. Pulse oximetry 93% on room air. No complaints of pain.
[2024-02-25] MEDS: SENOKOT-S PO (19:41)
--- NOTE | 2024-02-25 20:00 | PTCARENOTE ---
Received pt from [facility]; pt resting comfortably in chair with family at bedside; pt was assisted with walker to back to bed; pt is AAOX4, denies pain; NSR with LBBB, VSS; heart sounds audible, radial and DP pulses palpable, temp epicardial v-wires
set to VVI, rate of 30, MA of 1, Mv of 0.8; lung sounds diminished throughout, IS is 500, spo2 is 93% on RA; +BS x4 quadrants, abdomen soft non tender; pt voiding clear yellow urine; surgical sites maintained; right IJ cordis and PIV maintained;
call vega within reach; will continue to monitor.
[2024-02-25 20:29] LABS: Platelet Antibody, Direct IgG Negative (Negative); Platelet Antibody, Direct IgM Negative (Negative)
[2024-02-25] MEDS: ROXICODONE 5 MG PO (23:47)
[2024-02-26] VITALS (14 sets, daily range): BP systolic 77–161; BP diastolic 48–85; PULSE 90; O2SAT 94–95; BMI 32.7
--- NOTE | 2024-02-26 | PTCARENOTE ---
Pt assessment unchanged; pt resting comfortably in bed; NSR on monitor, VSS; call vega within reach will continue to monitor.
--- NOTE | 2024-02-26 04:00 | PTCARENOTE ---
Pt assessment unchanged; NSR on monitor, VSS; call vega within reach; will continue to monitor.
--- NOTE | 2024-02-26 05:07 | W.PN.CT ---
Documented by User: HARRY Ross 02/26/24 05:10
Today's Communication / Plan
-
-pod #5
-no issues overnight. Diuresed yesterday and started metoprolol 12.5 mg, tolerating NSR in 60s no significant pauses
-remained in nsr, again no pauses or significant bradycardia last night
-pacer was pacing inappropriately at the lowest sensitivity, decreased V output to min to avoid inappropriate R on T pacing (VVI 30)- monitor rhythm
-current meds (ASA, Plavix, Lipitor, Protonix, Feosol). BB and Amio held d/t conversion pauses
-encourage IS/OOB/ambulate
-dispo planning
Assessment / Plan
-
- Mod-severe / mv-CAD - s/p bioprosthetic AVR (#19 Inspiris); CABG x3 (DEL REAL-Lad, SVG-disal OM- prox OM branch) by Dr Odonnell on 02/21/24, pod #5
- Intraop KORINA w/ normal biventricular function
- Friable tissues/OM dissection
- CAD - s/p stenting of OM 12/01
- Pre-existing LBBB
- HTN/HLD
- Chronic diastolic CHF
- Hx fatigue/chest pain
- Class 1 obesity (BMI 31)
- OA/ b/l TKR
- Hx PVCs
- C-sections
- Acute postop blood loss anemia - s/p 2 pRBCs
- Acute postop thrombocytopenia- platelet transfusion aborted d/t possible reaction
- Acute type I hypersensitivity reaction/ hives with hypotensive shock, possible transfusion reaction to platelets- improved with Epi, Decadron, Benadryl, Pepcid
- Acute postop hypovolemia with subsequent hypervolemia
- Acute postop atelectasis
- KATHY- improved
- Acute postop paroxysmal a-fib with RVR with multiple conversion pauses on 02/23/24
Subjective
Procedure
- s/p bioprosthetic AVR (#19 Inspiris); CABG x3 (DEL REAL-Lad, SVG-disal OM- prox OM branch) by Dr Odonnell on 02/21/24
-
Date of Service: February 26, 2024
Objective Data
-
Lab Results
02/25/24 03:46
02/25/24 03:46
PT 17.7 Sec (11.4-14.6) H 02/22/24 03:27
INR 1.45 02/22/24 03:27
APTT 28.1 Sec (23.4-35.0) 02/22/24 03:27
Vital Signs
Vital Signs
Temp Pulse Resp BP Pulse Ox
98.9 F 70 16 141/64 99
02/26/24 04:26 02/26/24 04:26 02/26/24 04:26 02/26/24 04:26 02/26/24 04:26
CT Intake/Output/Weight
02/25/24 02/25/24 02/26/24
06:59 18:59 06:59
Intake Total 30 / 130 50 / 50
Output Total 500 / 2830 400 / 550 150 / 550
Balance -470 / -2700 -350 / -500 -150 / -500
SaO2: 99
Physical Exam
-
General: Awake and Oriented
Cardiovascular: Regular rate & rhythm, No Rub and No Gallop
Respiratory: Clear
Sternum: Stable
Incision: Clean and Dressing Intact
Extremities: No Edema
Data Reviewed
-
Lab Results: Results Reviewed
Medications: Active Meds Reviewed
Chest X-Ray: Report Reviewed
ECG: Report Reviewed

Documented by User: HARRY Ferrara 02/26/24 09:57
Assessment / Plan
-
- Mod-severe / mv-CAD - s/p bioprosthetic AVR (#19 Inspiris); CABG x3 (DEL REAL-Lad, SVG-disal OM- prox OM branch) by Dr Odonnell on 02/21/24, pod #5
- Intraop KORINA w/ normal biventricular function
- Friable tissues/OM dissection
- CAD - s/p stenting of OM 12/01
- Pre-existing LBBB
- HTN/HLD
- Chronic diastolic CHF
- Hx fatigue/chest pain
- Class 1 obesity (BMI 31)
- OA/ b/l TKR
- Hx PVCs
- C-sections
Acute pulmonary insufficiency (following surgery)
- Acute postop blood loss anemia - s/p 2 pRBCs
- Acute postop thrombocytopenia- platelet transfusion aborted d/t possible reaction
- Acute type I hypersensitivity reaction/ hives with hypotensive shock, possible transfusion reaction to platelets- improved with Epi, Decadron, Benadryl, Pepcid
- Acute postop hypovolemia with subsequent hypervolemia
- Acute postop atelectasis
- KATHY- improved
- Acute postop paroxysmal a-fib with RVR with multiple conversion pauses on 02/23/24
[2024-02-26] MEDS: TYLENOL 1000 MG PO ×3 (06:03→19:45)
[2024-02-26 07:36] LABS: Hematocrit 25.6 % (37.0-47.0); Hemoglobin 8.7 g/dL (12.0-16.0); Mean Corpuscular Hgb 31.3 pg (27.0-31.0); Mean Corpuscular Volume 92.1 fL (81.0-99.0); Mean Platelet Volume 10.6 fL (7.4-10.4); Platelet Count 107 10^3/uL (130-400); Red Blood Cell Count 2.78 10^6/uL (4.20-5.40); Red Cell Dist. Width 15.2 % (11.5-14.5); White Blood Cell Count 6.7 10^3/uL (4.8-10.8)
[2024-02-26 07:46] LABS: Blood Urea Nitrogen 21 mg/dl (7-17); Calcium 8.6 mg/dl (8.4-10.2); Carbon Dioxide 31 mmol/L (22-30); Chloride 103 mmol/L (98-107); Estimated Creatinine Clearance 63 ml/min; Glucose 96 mg/dl (70-99); Potassium 3.8 mmol/L (3.5-5.1); Sodium 137 mmol/L (135-145); eGFR > 60.00
--- NOTE | 2024-02-26 08:00 | PTCARENOTE ---
Received pt from nightshift RN; pt AAOx3 and resting comfortably in chair; NSR with LBBB on monitor and VSS; RIJ Cordis and PIV x1 all patent; Lungs diminished and IS to 1000; positive bowel sounds; pt voiding clear yellow urine; palpable pulses
throughout; trace generalized edema; surgical sites C/D/I; see nursing documentation for further details.
[2024-02-26] MEDS: SENOKOT-S PO ×3 (08:03→19:49)
[2024-02-26] MEDS: LIPITOR 40 MG PO (08:09)
[2024-02-26] MEDS: PROTONIX 40 MG PO ×2 (08:09→19:45)
[2024-02-26] MEDS: VITAMIN C 500 MG PO (08:10)
[2024-02-26] MEDS: LOW STRENGTH ASPIRIN 81 MG PO (08:10)
[2024-02-26] MEDS: FEOSOL 325 MG PO (08:10)
[2024-02-26] MEDS: LASIX 40 MG IV (08:10)
[2024-02-26] MEDS: MAGNESIUM OXIDE 500 MG PO ×2 (08:10→19:45)
[2024-02-26] MEDS: KCL 40 MEQ PO (08:10)
[2024-02-26] MEDS: PLAVIX 75 MG PO (08:10)
[2024-02-26] MEDS: NEURONTIN 100 MG PO ×3 (08:10→19:46)
[2024-02-26] MEDS: LIDOCAINE 4% PATCH 1 PATCH TOPICAL (08:11)
[2024-02-26 08:16] LABS: HCO3 - POC 25 mmol/L (21-29); Hematocrit - POC 23 % PCV (37-47); O2 Saturation %Calculated-POC 99 5 (92-96); PCO2 - POC 34 mmHg (35-45); PO2 - POC 251 mmHg (80-100); pH - POC 7.48 (7.35-7.45)
[2024-02-26 08:17] LABS: B.E. - POC 1.7 mmol/L; Glucose - POC 117 mg/dl (65-99); Ionized Calcium - POC 1.01 mmol/L (1.12-1.27); Potassium - POC 4.2 mmol/L (3.6-5.0); Sodium - POC 142 mmol/L (135-145)
[2024-02-26 08:19] LABS: Hemodilution- POC yes
[2024-02-26 08:21] LABS: Hemoglobin Calculated - POC 7.8
[2024-02-26 08:25] LABS: HCO3 - POC 25 mmol/L (21-29); PCO2 - POC 36 mmHg (35-45); PO2 - POC 341 mmHg (80-100); pH - POC 7.44 (7.35-7.45)
[2024-02-26 08:27] LABS: B.E. - POC 0.5 mmol/L; O2 Saturation %Calculated-POC 99 5 (92-96)
[2024-02-26 08:28] LABS: Glucose - POC 88 mg/dl (65-99); Hematocrit - POC 23 % PCV (37-47); Hemodilution- POC Yes; Hemoglobin Calculated - POC 7.8; Potassium - POC 4.1 mmol/L (3.6-5.0); Sodium - POC 144 mmol/L (135-145)
[2024-02-26] MEDS: ROXICODONE 5 MG PO ×2 (08:58→19:52)
[2024-02-26] MEDS: ProAmatine PO (08:59)
--- NOTE | 2024-02-26 08:59 | PN.CDI ---
CDI
- -
CDI:
Physician Documentation Request
Admit Date: 02/21/24 05:[address] Odonnell/FALGUNI STINSON,
Clinical Indicators:
Patient admitted with aortic stenosis; s/p AVR and CABG x 3 02/20.
02/23 (08:45) RN note, 'Pulse oximetry 98% on 2L nasal cannula. Pulse oximetry 80's while on room air.'
02 requirements:
02/24/24
08:00 02/24/24
11:10 02/25/24
07:56
Oxygen Mode of Delivery Room air
Nasal Cannula flow liters per minute 2 1
02/25/24
20:00 02/26/24
04:26
Oxygen Mode of Delivery Room air
Nasal Cannula flow liters per minute 2
Please clarify which of the following accurately represents the patient's respiratory status following surgery:
Acute pulmonary insufficiency (following surgery)
Hypoxia only
Other
Additional information for Pulmonary Insufficiency:
Consider when patients require intermediate oxygen therapy postoperatively
Weaned off oxygen initially then requiring supplemental oxygen
No other definitive diagnosis to support the need for oxygen (COPD exac, CHF etc.)
Unable to wean from vent
When criteria for respiratory failure not present
May extend stay or require additional resources; may need home O2
Use of terms such as suspected, likely, concern for, or probable (associated with a specific diagnosis that is being evaluated, monitored, or treated as if it exists) are acceptable and can be coded in the inpatient setting, when documented at the
time of discharge.
Thank you,
Claire Hinson RN BSN
CDI Specialist
available via tiger text
Please use your independent medical judgment in providing your response.
[2024-02-26] MEDS: LOPRESSOR 12.5 MG PO (10:50)
--- NOTE | 2024-02-26 10:59 | W.PN.CD ---
Today's Communication / Plan
-
Continue routine post op management.
Transition to metoprolol succinate 12.5 mg daily.
Start furosemide 40 mg PO daily (standing).
Start dapagliflozin 10 mg daily.
Case management consult.
Impression / Plan
-
Impression/Plan: 74 y/o female with CAD and severe admitted for elective CABG and SAVR.
#CAD
-Chronic.
-S/P CABG x 3 (DEL REAL to LAD, Sequential SVG to proximal OM to distal OM) by Dr. Odonnell, 02/21/2024.
-During closure she developed VF, shock and magnesium administered.
-Pre and post KORINA unchanged.
-EKG with left bundle branch block, unchanged.
-Postoperatively had shock, felt to be anaphylactic (hypotension, diffuse urticarial rash).
-Continue aspirin, atorvastatin, clopidogrel and metoprolol.
#Moderate to severe aortic stenosis
-Chronic.
-S/P #19 [place] Inspiris SAVR by Dr. Odonnell, 02/21/2024.
#ICMO
-Chronic.
-LVEF 45%.
-GDMT as hemodynamics will tolerate.
-Transition to metoprolol succinate.
-BP will not tolerate ACEI/ARB/ARNi/RAA.
-Start furosemide 40 mg PO daily.
-Start dapagliflozin 10 mg daily.
-Case management consult.
#Post operative atrial fibrillation with rapid ventricular response/pauses with heart block
-Patient with transient pauses on Monday (longest almost 5 seconds) due to failure for temporary wire to capture; settings adjusted, now resolved.
-Telemetry stable with no need for intermittent pacing.
-Avoid amiodarone.
-Longest pause was nearly 5 seconds
-Continue color television console monitor; temporary wire still in place.
-Transition from metoprolol tartrate 12.5 mg BID to succinate 12.5 mg daily.
#Type I/type II hypersensitivity reaction with hypotensive shock
-Acute anaphylactic like reaction (unknown source, likely a reaction to transfusion).
-Resolved after dexamathasone, epinephrine, diphenhydramine and famotidine.
-Offending agent remains unknown (platelets, PRBC, antibiotic, protamine) but no suspicious of platelets.
#Hypertension
-Chronic.
-Previously on pressors.
-Previously on midodrine.
#Postoperative hypovolemia with subsequent hypervolemia
#Acute postoperative anemia
#PFO
#Atheroma in aortic arch and descending aorta by TTE
#Hypertension
Comfort Station Supervisor: Dr. Burdick
Subjective/Interval History:
No acute events.
SaO2 95% on RA.
H/H stable.
DATA:
KORINA, 02/21/2024:
CONCLUSIONS
Overall LVEF is approximately 45-50% with mild global hypokinesis.
Moderate concentric left ventricular hypertrophy.
Stage I Diastolic dysfunction.
Patent foramen ovale present with a [id number] shunt.
Moderately dilated right atrium.
Trace tricuspid regurgitation.
Trace pulmonic insufficiency.
Severe aortic stenosis.
Mild aortic insufficiency.
KAYLI calculates to 0.7 cm2 by continuity equation.
Trace mitral regurgitation.
Mild posterior MV annular calcification.
Mild diffuse calcified atheroma seen in the aortic arch.
Mild sessile atheroma seen in the descending aorta.
POST OPERATIVE FINDINGS
The patient underwent an AVR with a size 19 bioprosthetic valve and a CABG.
Post op rhythm remains sinus. Mild RV dysfunction. Overall LVEF is still
approximately 45-50% with mild global hypokinesis. The AVR is well seated with
no AI or perivalvular leaks. Max AV gradient measures 22 mmHg, mean is 10
mmHg. Mild central MR. Mild TR. PV function appears normal. No change in
the PFO with left to right flow noted. Aortic scan is unchanged.
Physical Exam
Vital Signs/Labs
Vital Signs
Temp Pulse Resp BP Pulse Ox
37.2 C 93 18 148/64 95
02/26/24 07:48 02/26/24 10:50 02/26/24 07:48 02/26/24 10:50 02/26/24 08:47
02/24/24 02/25/24 02/26/24
11:59 11:59 11:59
Actual Weight 83.5 kg 81.2 kg 81.1 kg
02/26/24 07:25
02/26/24 07:25
PT 17.7 Sec (11.4-14.6) H 02/22/24 03:27
INR 1.45 02/22/24 03:27
APTT 28.1 Sec (23.4-35.0) 02/22/24 03:27
Magnesium 2.0 mg/dl (1.6-2.3) 02/26/24 07:25
Physical Exam
Constitutional: No acute distress and Comfortable
EENT: Anicteric and Moist mucous membranes
Cardiovascular: Rhythm & rate is regular, Pedal edema is absent, JVD pressure is normal, S1S2 is normal and Murmur/rub/gallop absent
Respiratory: Respiratory effort normal, Lungs clear to auscul., Wheeze Absent, Crackles Absent and Rhonchi Absent
GI: Soft, Distention absent, Flat, Non tender and Normal bowel sounds
Neuro/Psych: AO x 3
Data Reviewed
-
Date of Service: February 26, 2024
Medical Decision Making: Reviewed Test Results, Independent Historian Assessment, Test Interpretation and Review of Case with other Provider
EKG: Tracing Personally Visualized and interpreted and Report Reviewed by me
Echo: Tracing Personally Visualized and interpreted and Report Reviewed by me
X-Ray/CT/US/MRI/NUC/PET: Image Personally Visualized and interpreted and Report Reviewed by me
Medical Tests (PFT, Pathology etc): Image Personally Visualized and interpreted and Report Reviewed by me
Labs: Labs Reviewed by me
--- NOTE | 2024-02-26 12:00 | PTCARENOTE ---
Pt received from morning RN, pt oob in a chair, aaox4, NSR, Epicardial wire, Rt IJ cordis, RA, VSS, ambulating with nursing staff with RW.
[2024-02-26] MEDS: NSS IV (14:26)
--- NOTE | 2024-02-26 15:50 | PTCARENOTE ---
Pt reassessment unchanged from previous, vss, ra, NSR lbbb, epicardial wire, ambulating, voiding, pain manangement.
--- NOTE | 2024-02-26 16:01 | CM ---
tobi ribera, called pts pharm [facility], mounika needs prior auth, they would not give me a copay. texted Bria Rivas [employer] and she suggested we give pt 30 day free coupon and her pharm max complete the prior auth process with Dr Crockett [facility] ( her
cardiol) pt given both 30 day coupon and the zero dollar copay card in her red dc folder.
--- NOTE | 2024-02-26 20:00 | PTCARENOTE ---
assumed care of pt from previous RN. pt A&Ox4, resting in bed at time of assessment. SR on tele-monitor. temp epicardial V-wires, plugged in to pulse generator, back up settings VVI 30/1.0/0.8. POX 95% on RA. all surgical sites stable, CDI. R IJ
cordis w/ KVO. PIV intact. see worklist for complete nursing assessment, interventions, VS, and I&Os.
[2024-02-26] MEDS: VENTOLIN NEBULES 2.5 MG INH (20:39)
[2024-02-26] MEDS: KCL 20 MEQ PO (20:51)
[2024-02-26] MEDS: TOPROL XL PO (23:07)
[2024-02-27] VITALS (7 sets, daily range): BP systolic 114–147; BP diastolic 52–76; PULSE 88; O2SAT 93–95; BMI 32.7
--- NOTE | 2024-02-27 | PTCARENOTE ---
assessment remains unchanged. VSS.
[2024-02-27 04:02] LABS: Hematocrit 26.4 % (37.0-47.0); Hemoglobin 8.8 g/dL (12.0-16.0); Ionized Calcium 1.19 mMOL/L (1.15-1.33); Mean Corp Hgb Conc. 33.3 g/dL (33.0-37.0); Mean Corpuscular Hgb 31.5 pg (27.0-31.0); Mean Corpuscular Volume 94.6 fL (81.0-99.0); Mean Platelet Volume 10.4 fL (7.4-10.4); Platelet Count 114 10^3/uL (130-400); Red Blood Cell Count 2.79 10^6/uL (4.20-5.40); Red Cell Dist. Width 15.1 % (11.5-14.5); White Blood Cell Count 8.3 10^3/uL (4.8-10.8)
--- NOTE | 2024-02-27 04:28 | W.PN.CT ---
Today's Communication / Plan
-
Plan:
-No major issues overnight. Hemodynamically and neurologically intact
-Off all drips
-Noted to have bradycardia with conversion pauses following treatment of a-fib with RVR postop. Amiodarone currently on hold. Lopressor transitioned to Toprol XL 12.5 mg po QD per Cardiology
-Midodrine d/c'd the night of 02/24
-Cont. current meds (ASA, Plavix, Lipitor, Toprol XL, Protonix, Feosol; Farxiga added)
-Cont. diuresis, replete electrolytes
-D/C cordis
-D/C temporary PW (will cut)
-Thrombocytopenia improvinK ->90K ->107K -> 114K
-H/H stable @ 8.8/26.4
-D/C home
Assessment / Plan
-
Assessment:
- Mod-severe / mv-CAD - s/p bioprosthetic AVR (#19 Inspiris); CABG x3 (DEL REAL-Lad, SVG-disal OM- prox OM branch) by Dr Odonnell on 02/21/24, pod #6
- Intraop KORINA w/ normal biventricular function
- Friable tissues/OM dissection
- CAD - s/p stenting of OM 12/01
- Pre-existing LBBB
- HTN/HLD
- Chronic diastolic CHF
- Hx fatigue/chest pain
- Class 1 obesity (BMI 31)
- OA/ b/l TKR
- Hx PVCs
- C-sections
- Acute pulmonary insufficiency (following surgery)
- Acute postop blood loss anemia - s/p 2 pRBCs
- Acute postop thrombocytopenia- platelet transfusion aborted d/t possible reaction
- Acute type I hypersensitivity reaction/ hives with hypotensive shock, possible transfusion reaction to platelets- improved with Epi, Decadron, Benadryl, Pepcid
- Acute postop hypovolemia with subsequent hypervolemia
- Acute postop atelectasis
- KATHY- improved
- Acute postop paroxysmal a-fib with RVR with multiple conversion pauses on 02/23/24
Discussed patient care with: Cardiology, Nursing, Respiratory Therapy, Pharmacy and Care Team
Subjective
Procedure
- s/p bioprosthetic AVR (#19 Inspiris); CABG x3 (DEL REAL-Lad, SVG-disal OM- prox OM branch) by Dr Odonnell on 02/21/24
-
Date of Service: February 27, 2024
Pt c/o mild incisional pain, otherwise feels well. Ambulating halls without difficulty
Objective Data
-
Lab Results
02/27/24 03:55
PT 17.7 Sec (11.4-14.6) H 02/22/24 03:27
INR 1.45 02/22/24 03:27
APTT 28.1 Sec (23.4-35.0) 02/22/24 03:27
Vital Signs
Vital Signs
Temp Pulse Resp BP Pulse Ox
98.5 F 81 16 123/56 93
02/27/24 04:00 02/27/24 04:00 02/27/24 04:00 02/27/24 03:53 02/27/24 04:00
CT Intake/Output/Weight
02/26/24 02/26/24 02/27/24
06:59 18:59 06:59
Intake Total 160 / 220 60 / 220
Output Total 150 / 550 1750 / 1950 200 / 1950
Balance -150 / -500 -1590 / -1730 -140 / -1730
SaO2: 93 (RA)
Physical Exam
-
General: Awake, Oriented and AOx3
Cardiovascular: Regular rate & rhythm, No Murmurs, No Rub and No Gallop
Respiratory: Decreased Breath Sounds (at bases, otherwise clear)
Sternum: Stable
Incision: Clean, Dry, Intact and Dressing Intact
Extremities: Other (+trace edema)
Data Reviewed
-
Lab Results: Results Reviewed
Medications: Active Meds Reviewed
Chest X-Ray: Report Reviewed and Image Reviewed
ECG: Report Reviewed and Image Reviewed
[2024-02-27 04:30] LABS: Blood Urea Nitrogen 22 mg/dl (7-17); Calcium 8.7 mg/dl (8.4-10.2); Carbon Dioxide 29 mmol/L (22-30); Chloride 105 mmol/L (98-107); Estimated Creatinine Clearance 63 ml/min; Glucose 102 mg/dl (70-99); Potassium 4.6 mmol/L (3.5-5.1); Sodium 139 mmol/L (135-145); eGFR > 60.00
[2024-02-27] MEDS: TYLENOL 1000 MG PO (05:32)
--- NOTE | 2024-02-27 07:36 | W.PN.CD ---
Today's Communication / Plan
-
Add lisinopril 2.5 mg daily.
Outpatient BMP in one week.
Stable for outpatient cardiology follow up (Dr. Burdick).
Impression / Plan
-
Impression/Plan: 74 y/o female with CAD and severe admitted for elective CABG and SAVR.
#CAD
-Chronic.
-S/P CABG x 3 (DEL REAL to LAD, Sequential SVG to proximal OM to distal OM) by Dr. Odonnell, 02/21/2024.
-During closure she developed VF, shock and magnesium administered.
-Pre and post KORINA unchanged.
-EKG with left bundle branch block, unchanged.
-Postoperatively had shock, felt to be anaphylactic (hypotension, diffuse urticarial rash).
-Continue aspirin, atorvastatin, clopidogrel and metoprolol.
#Moderate to severe aortic stenosis
-Chronic.
-S/P #19 [place] Inspiris SAVR by Dr. Odonnell, 02/21/2024.
#ICMO
-Chronic.
-LVEF 45%.
-GDMT as hemodynamics will tolerate.
-Tolerating metoprolol succinate, dapagliflozin and furosemide.
-Start lisinopril 2.5 mg daily.
-Outpatient BMP in one week.
#Post operative atrial fibrillation with rapid ventricular response/pauses with heart block
-Patient with transient pauses on Monday (longest almost 5 seconds) due to failure for temporary wire to capture; settings adjusted, now resolved.
-Telemetry stable with no need for intermittent pacing.
-Avoid amiodarone.
-Longest pause was nearly 5 seconds
-Continue phototypesetting equipment monitor; temporary wire still in place.
-Tolerating metoprolol succinate 12.5 mg daily.
#Type I/type II hypersensitivity reaction with hypotensive shock
-Acute anaphylactic like reaction (unknown source, likely a reaction to transfusion).
-Resolved after dexamathasone, epinephrine, diphenhydramine and famotidine.
-Offending agent remains unknown (platelets, PRBC, antibiotic, protamine).
#Hypertension
-Chronic, stable.
#Postoperative hypovolemia with subsequent hypervolemia
#Acute postoperative anemia
#PFO
#Atheroma in aortic arch and descending aorta by TTE
#Hypertension
Rejector: Dr. Burdick
Subjective/Interval History:
No acute events.
BP improving.
DATA:
KORINA, 02/21/2024:
CONCLUSIONS
Overall LVEF is approximately 45-50% with mild global hypokinesis.
Moderate concentric left ventricular hypertrophy.
Stage I Diastolic dysfunction.
Patent foramen ovale present with a [id number] shunt.
Moderately dilated right atrium.
Trace tricuspid regurgitation.
Trace pulmonic insufficiency.
Severe aortic stenosis.
Mild aortic insufficiency.
KAYLI calculates to 0.7 cm2 by continuity equation.
Trace mitral regurgitation.
Mild posterior MV annular calcification.
Mild diffuse calcified atheroma seen in the aortic arch.
Mild sessile atheroma seen in the descending aorta.
POST OPERATIVE FINDINGS
The patient underwent an AVR with a size 19 bioprosthetic valve and a CABG.
Post op rhythm remains sinus. Mild RV dysfunction. Overall LVEF is still
approximately 45-50% with mild global hypokinesis. The AVR is well seated with
no AI or perivalvular leaks. Max AV gradient measures 22 mmHg, mean is 10
mmHg. Mild central MR. Mild TR. PV function appears normal. No change in
the PFO with left to right flow noted. Aortic scan is unchanged.
Physical Exam
Vital Signs/Labs
Vital Signs
Temp Pulse Resp BP Pulse Ox
36.8 C 94 17 126/72 94
02/27/24 07:23 02/27/24 07:23 02/27/24 07:23 02/27/24 07:20 07/16/24 07:23
02/25/24 02/26/24 02/27/24
11:59 11:59 11:59
Actual Weight 81.2 kg 81.1 kg 81 kg
02/27/24 03:55
02/27/24 03:55
PT 17.7 Sec (11.4-14.6) H 02/22/24 03:27
INR 1.45 02/22/24 03:27
APTT 28.1 Sec (23.4-35.0) 02/22/24 03:27
Magnesium 2.0 mg/dl (1.6-2.3) 02/27/24 03:55
Physical Exam
Constitutional: No acute distress and Comfortable
EENT: Anicteric and Moist mucous membranes
Cardiovascular: Rhythm & rate is regular, Pedal edema is absent, JVD pressure is normal, S1S2 is normal and Murmur/rub/gallop absent
Respiratory: Respiratory effort normal, Lungs clear to auscul., Wheeze Absent, Rhonchi Absent and Other (Decreased in the bases.)
GI: Soft, Distention absent, Flat, Non tender and Normal bowel sounds
Neuro/Psych: AO x 3
Data Reviewed
-
Date of Service: February 27, 2024
Medical Decision Making: Reviewed Test Results, Independent Historian Assessment, Test Interpretation and Review of Case with other Provider
EKG: Tracing Personally Visualized and interpreted and Report Reviewed by me
Echo: Report Reviewed by me
X-Ray/CT/US/MRI/NUC/PET: Image Personally Visualized and interpreted and Report Reviewed by me
Medical Tests (PFT, Pathology etc): Report Reviewed by me
Labs: Labs Reviewed by me
Old Records: Reviewed
--- NOTE | 2024-02-27 07:38 | W.DCSUMMARY ---
Discharge Summary
Discharge Data
Date of Admission: 02/21/24
Date of Discharge: 02/27/24
-
Pending Results: No
Hospital Course
Primary care physician: Harry Silva
Outpatient sales specialist: Yayo Burdick
Inpatient consultants: [facility]
Procedures:
1. Aortic valve replacement and coronary artery bypass grafting
Primary Diagnosis:
1. Epzhwnox-ux-uewxyn aortic stenosis (P/M: 52/36) amd multivessel coronary disease s/p prior stenting of OM
Secondary Diagnoses:
1. Pre-existing LBBB
2. HTN
3. HLD
4. HFrEF (EF 45-50%)
5. Obesity (BMI 31)
6. Osteoarthritis status post b/l TKR
7. Acute surgical blood loss anemia - s/p 2 pRBCs
8. Acute postop thrombocytopenia- platelet transfusion aborted d/t possible reaction
9. Acute type I hypersensitivity reaction/ hives with distributive shock, possible transfusion reaction to platelets- improved with Epi, Decadron, Benadryl, Pepcid
10. Postoperative paroxysmal atrial fibrillation
HPI: 74-year-old female was electively admitted on 02/21/2024 for CABG
Hospital course: Patient underwent CABG x 3 (SVG-Distal OM, SVG-proximal OM branch, DEL REAL-LAD) and tissue AVR (#19 Inspiris) with Dr. Lennox Odonnell. Intraoperative KORINA reported an EF of 45-50%. AV gradients of 22/10 mmHg. Mild MR/TR and small PFO
unchanged. Patient returned to CVICU on dobutamine, Levophed, insulin, and Precedex. Patient noted to have diffuse hives which is presumed from recent platelet transfusion. Patient became hypotensive tensive with distributive shock and received
epinephrine, Decadron, Benadryl, Pepcid. Vasopressin was added and hemodynamics stabilized. Patient received 1 packed cell for hemoglobin of 8.4. Postoperative day #1, patient was weaned off dobutamine and Simms-Alix catheter was removed. Aspirin
and Plavix were initiated. Patient received additional packed red blood cell for hemoglobin of 7.2 on postoperative day #2. Patient developed atrial fibrillation and required amiodarone bolus and drip. Midodrine was initiated in an effort to wean
off Levophed. Patient was diuresed and Goyal catheter was removed. Chest tubes were discontinued on postoperative day #3. Levophed was weaned off. Patient remained in sinus rhythm without conversion pause. Patient was again diuresed with Lasix
40 mg twice daily. Beta-blair was initiated on postoperative day #1. Blood pressure stabilized on postoperative day #5 and midodrine was discontinued. Beta-blair was continued and Farxiga initiated. Right IJ cordis was discontinued on
postoperative day #6. Metoprolol was converted to Toprol-XL 12.5 mg daily. Temporary epicardial ventricular pacing wires were clipped at skin level. Patient was started on lisinopril by cardiology and will have a BMP drawn in 1 week
postdischarge. Patient ambulated and completed steps with cardiac rehab. Patient was deemed stable for discharge to home on 02/27/2024.
Home medication changes:
Stop Imdur and metoprolol tartrate
Discharge Plan
-
Patient Disposition: Home (Routine Discharge)
Discharge Diagnosis/Procedures: aortic stenosis/CAD s/p AVR/CABG
Condition: Good
Diet: Low Cholesterol and Low Sodium
Activity: No strenuous activity
Driving Restrictions: Not until seen by your Dr
Bathing Restrictions: OK to Shower
Blood Work: BMP in 1 week (new to Lisinopril)
Other Services: Cardiac Rehab
Specialty Instructions: Weigh Daily- Call MD for wt gain/loss 3 lbs overnight/5 lbs in 1 week
Activity Restrictions/Additional Instructions:
[facility]: ([phone])
See other brochures in DC packet for futher information.
Referrals:
CT Transitional Care Nurse [Outside]
(
The Cardiothoracic Transitional Care Nurse will call you to set up a visit in 1-2 days.)
Shira Mcdonald MD [Family Provider] -
Yayo Burdick MD [Active] - 04/10/24 2:00 pm
Lennox Odonnell MD [Active] - 03/19/24 1:30 pm
Additional Discharge Medication Instructions: Lisinopril and Farxiga for heart failure
Prescriptions:
New
acetaminophen 325 mg Tablet
650 mg PO Q4HPRN PRN (Reason: mild pain,headache,temp >101F ) Qty: 0 0RF
clopidogrel 75 mg Tablet
75 mg PO DAILY Qty: 30 1RF
ascorbic acid (vitamin C) [Vitamin C] 500 mg Tablet
500 mg PO DAILY Qty: 30 0RF
ferrous sulfate [FeroSul] 325 mg (65 mg iron) Tablet
325 mg PO DAILY Qty: 30 0RF
metoprolol succinate 25 mg Tablet Extended Release 24 Hr
12.5 mg PO DAILY Qty: 30 1RF
oxycodone 5 mg Tablet
5 mg PO Q4HPRN PRN (Reason: severe pain) Qty: 20 0RF
dapagliflozin propanediol 10 mg Tablet
10 mg PO DAILY Qty: 30 1RF
lisinopril 2.5 mg Tablet
2.5 mg PO DAILY Qty: 30 1RF
Continued
atorvastatin 40 mg Tablet
40 mg PO DAILY
pantoprazole 40 mg Tablet,Delayed Release (Dr/Ec)
40 mg PO BID
aspirin 81 mg Tablet
81 mg PO DAILY
furosemide 20 mg Tablet
20 mg PO DAILY
Discontinued
isosorbide mononitrate 60 mg Tablet Extended Release 24 Hr
60 mg PO DAILY
metoprolol tartrate 50 mg Tablet
50 mg PO DAILY
Discharge Orders:
Discharge Patient (As Directed); Ordered 02/27/24
Ordered By: Eloina Salazar
Care Plan Goals
Care Plan Goals:
Problem: Readiness for enhanced knowledge related to diagnosis and treatment plan
Goal: Understand your diagnosis and treatment plan needs, including medications if applicable.
Instructions: Know your diagnosis, underlying causes and treatment plan options, including medications if applicable. Consult with your health care team to learn about your diagnosis and treatment plan, including medications if applicable.
Discharge Date and Time
Print Language: NIGERIAN
--- NOTE | 2024-02-27 07:42 | PTCARENOTE ---
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 NSR, SaO2 @ 94% on RA. RIJ Cordis present. Epicardial V-wire to pulse generator set to backup rate, no spikes noted. All procedural sites stable. Patient
updated to plan of care for the day, including pending d/c home, in agreement. See work list for full assessment and interventions performed.
[2024-02-27] MEDS: LIPITOR 40 MG PO (07:54)
[2024-02-27] MEDS: PLAVIX 75 MG PO (07:54)
[2024-02-27] MEDS: VITAMIN C 500 MG PO (07:54)
[2024-02-27] MEDS: LOW STRENGTH ASPIRIN 81 MG PO (07:54)
[2024-02-27] MEDS: MAGNESIUM OXIDE 500 MG PO (07:54)
[2024-02-27] MEDS: ZESTRIL 2.5 MG PO (07:55)
[2024-02-27] MEDS: FARXIGA 10 MG PO (07:55)
[2024-02-27] MEDS: NEURONTIN 100 MG PO (07:55)
[2024-02-27] MEDS: PROTONIX 40 MG PO (07:55)
[2024-02-27] MEDS: TOPROL XL 12.5 MG PO (07:55)
[2024-02-27] MEDS: FEOSOL 325 MG PO (07:55)
[2024-02-27] MEDS: SENOKOT-S 1 TABLET PO (07:56)
[2024-02-27] MEDS: LASIX 40 MG PO (07:56)
[2024-02-27] MEDS: LIDOCAINE 4% PATCH TOPICAL (08:07)
--- NOTE | 2024-02-27 09:10 | PTCARENOTE ---
Epicardial V-wires d/c'd by GELACIO Salazar, assist by this RN. Patient tolerated well.
--- NOTE | 2024-02-27 14:22 | PTCARENOTE ---
Patient set up to shower, completed independently. PIV removed. Discharge instructions thoroughly reviewed w/patient and daughter, all questions answered. Patient and all belongings transported to waiting vehicle for d/c home with family.
== END 2024-02-27 14:49 | disposition home or self-care (01) | DRG 219 ==
LOC: CVICU 05:03
PROVIDERS: Anesthesiology; Clinical Nurse Specialist Acute Care; Nurse Practitioner; Physician Assistant Medical; ADMITTING PHYSICIAN Thoracic Surgery (Cardiothoracic Vascular Surgery); CONSULT PHYSICIAN Internal Medicine; FAMILY PHYSICIAN Family Medicine
PROC: 30233R1 Transfusion of Nonautologous Platelets into Peripheral Vein, Percutaneous Approach (ICD-10-PCS; 2024-02-21)
PROC: 02RF08Z Replacement of Aortic Valve with Zooplastic Tissue, Open Approach (ICD-10-PCS; 2024-02-21)
PROC: 02100ZC Bypass Coronary Artery, One Artery from Thoracic Artery, Open Approach (ICD-10-PCS; 2024-02-21)
PROC: 06BP4ZZ Excision of Right Saphenous Vein, Percutaneous Endoscopic Approach (ICD-10-PCS; 2024-02-21)
PROC: 5A1221Z Performance of Cardiac Output, Continuous (ICD-10-PCS; 2024-02-21)
PROC: B24BZZ4 Ultrasonography of Heart with Aorta, Transesophageal (ICD-10-PCS; 2024-02-21)
PROC: 021109W Bypass Coronary Artery, Two Arteries from Aorta with Autologous Venous Tissue, Open Approach (ICD-10-PCS; 2024-02-21)
PROC: 30233N1 Transfusion of Nonautologous Red Blood Cells into Peripheral Vein, Percutaneous Approach (ICD-10-PCS; 2024-02-21)
DX: I35.0 Nonrheumatic aortic (valve) stenosis (principal); I49.01 Ventricular fibrillation; J95.1 Acute pulmonary insufficiency following thoracic surgery; D62 Acute posthemorrhagic anemia; I50.32 Chronic diastolic (congestive) heart failure; T80.51XA Anaphylactic reaction due to administration of blood and blood products, initial encounter; Q21.12 Patent foramen ovale; J98.11 Atelectasis; N17.9 Acute kidney failure, unspecified; I25.10 Atherosclerotic heart disease of native coronary artery without angina pectoris; I11.0 Hypertensive heart disease with heart failure; E66.9 Obesity, unspecified; I44.7 Left bundle-branch block, unspecified; E78.5 Hyperlipidemia, unspecified; M19.90 Unspecified osteoarthritis, unspecified site; D69.59 Other secondary thrombocytopenia; T80.89XA Other complications following infusion, transfusion and therapeutic injection, initial encounter; Y84.8 Other medical procedures as the cause of abnormal reaction of the patient, or of later complication, without mention of misadventure at the time of the procedure; L50.8 Other urticaria; I48.0 Paroxysmal atrial fibrillation; T45.8X5A Adverse effect of other primarily systemic and hematological agents, initial encounter; E86.1 Hypovolemia; I25.5 Ischemic cardiomyopathy; I45.9 Conduction disorder, unspecified; E87.70 Fluid overload, unspecified; I70.0 Atherosclerosis of aorta; Z68.32 Body mass index [BMI] 32.0-32.9, adult; Z79.82 Long term (current) use of aspirin; Z79.899 Other long term (current) drug therapy; Z95.5 Presence of coronary angioplasty implant and graft
CPT/HCPCS: 88305; 88311; 36415; 71045; 71046; 80048; 80053; 81003; 81015; 82248; 82330; 82565; 82805; 82810; 82947; 82962; 83036; 83605; 83735; 84132; 84302; 84520; 85014; 85018; 85025; 85027; 85049; 85610; 85730; 86023; 86850; 86900; 86901; 86920; 87070; 87077; 87086; 87186; 93005; 93312; 93320; 93325; 93880; 94002; 94010; 94060; 94640; P9016; P9045; P9047; P9073

== ENCOUNTER 2024-04-12 16:11 | Outpatient (RCR) | payer OTHER, SELFPAY | END 2024-04-12 23:59 | disposition home or self-care (01) | LOC: CRHB 16:11 | PROVIDERS: ATTENDING PHYSICIAN Internal Medicine Clinical Cardiac Electrophysiology; FAMILY PHYSICIAN Family Medicine | DX: I25.10 Atherosclerotic heart disease of native coronary artery without angina pectoris (principal); Z95.4 Presence of other heart-valve replacement; Z95.1 Presence of aortocoronary bypass graft | CPT/HCPCS: 93797; 93798 ==